=== PATIENT | female | born 1940 | race Caucasian/White ===

== ENCOUNTER → 2017-12-30 | Outpatient (CLI) | payer MEDICARE, MEDICAID ==
[~2017-12-30] MED LIST: NAPROSYN500 MG PO; NORCO 5-325 TA1 EACH PO
--- NOTE | ~2017-12-30 | PAINCON ---
[address] [address] PAIN MANAGEMENT CONSULTATION Name: ALVARO DE LEON Room: [facility] ROBERT Landers#: [id number] Admission: 12/30/17 Attend Phys: Darren Moreno MD Discharge: Date of : 42 Report #: [id number] THIS REPORT FOR: //name// CC: Jhonny Moreno This should be attached to the previous dictation, #[id number]. LABORATORY DATA: No new laboratory values are available. The patient has a history of scoliosis. PAIN CLINIC ASSESSMENT: 1. 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 2. Height 5 feet 6 inches, weight 160 pounds, BMI is 26.0. 3. Vital signs: Blood pressure 145/65, heart rate 73, respiratory rate 16, room air saturation 98%, temperature 97.5. 4. Pain intensity 10/10. 5. Fall history: The patient has not fallen in the last 3 months. 6. Blood thinner. The patient is not on a blood thinning medication. 7. Hypertension. The patient is not being treated for hypertension. 8. Opioid therapy greater than 6 weeks. The patient receives medications from 1 source for her pain, which has been hydrocodone. 9. Risk assessment tool, low for opioid use. 10. Functional assessment tool about 35/70. 11. Recreational drug use: The patient denies. 12. Tobacco: The patient denies. 13. Alcohol: The patient occasionally uses alcoholic beverages. PHYSICAL EXAMINATION: GENERAL: The patient is a well-developed, well-nourished white female. Appears her stated age. She is alert and oriented x 3. Affect is appropriate. Speech is fluent. HEENT: Normocephalic, atraumatic. Extraocular eye muscles intact. Sclerae nonicteric. Mucous membranes are moist. NECK: With reasonable range of motion. No JVD or bruits. HEART: Regular rate. S1, S2. LUNGS: Clear to auscultation. ABDOMEN: Nontender. Bowel sounds present. NEUROLOGIC: Upper extremity muscle strength is judged to be 4+/5. The patient has changes in her fingers consistent with osteoarthritis involving the joints. The patient has scoliotic changes involving her upper back with a movement toward the left. The patient complains of some pain and discomfort in lower leg area with some cramping. She is able to lean forward on her toes and her heels. The patient is without significant lumbar radicular pain. The patient noticed soreness in her ribs, particularly noted increased soreness in the ribs after lifting a 14-pound bag of cat litter. Left and right lateral bending, left and right lateral rotation cause increased back and chest pain[place] [address] PAIN MANAGEMENT CONSULTATION Name: ALVARO DE LEON Room: [facility]#: [id number] Admission: 12/30/17 Attend Phys: Darren Moreno MD Discharge: Date of : 42 Report #: [id number] to lean forward to 45 degrees before limitations of pain stop her movement. IMPRESSION: 1. Chronic pain involving the axial skeleton secondary to osteoarthritis. 2. History of chronic bladder infections. 3. History of chronic bronchitis. RECOMMENDATIONS: We discussed treatment options with the patient. At this juncture, we will continue with her use of hydrocodone. She feels that this medication has been quite helpful. She generally takes 5 mg b.i.d. Finds that her pain level can be about 5 with use of this medication at that level, taking one twice a day. At this juncture, she is not interested in having imaging of her back. She is not considering surgery. She would like to have her medications continued, so that she can have reasonable effective and comfortable life. We have had the patient sign a contract with the pain clinic that she will get her medications from one source. We discussed the problems with opioid medications, which could include addiction as well as chronic use could cause tolerance with less effectiveness of medication. We explained that 72,000 people last year as a result of opioid overdoses. There has been about 500,000 people have since 1979 and the use of opioid medications. The patient feels that these medications are helpful. She would like to proceed with their use. She will call us if she has any concerns. By: [id number]. Norberto Moreno MD /mirza
--- NOTE | 2018-01-21 16:20 | PAINCON ---
[address] [address] PAIN MANAGEMENT CONSULTATION Name: ALVARO DE LEON Room: [facility] ROBERT ArriagaJeffery#: [id number] Admission: 12/30/17 Attend Phys: Darren Moreno MD Discharge: Date of : 42 Report #: [id number] THIS REPORT FOR: //name// CC: Jhonny Moreno DATE OF SERVICE: 12/30/2017 CHIEF COMPLAINT: Feels like my back is broken. HISTORY OF PRESENT ILLNESS: The patient is a 77-year-old female who has been referred to the Pain Clinic for evaluation. The patient states she has had a long history of back problems. She has a significant problem with her back secondary to scoliosis. She notes that standing makes her back particularly more problematic. She states that she has had some fractures in her back. She is not considering surgery. States that she has been disabled since about 1998. She rates her pain as an 8 at this juncture. With her current medication regimen of [place] 5 one tablet b.i.d., her pain decreases to 5, which is much more manageable. States that she has been taking the medication for some time, has not had any problems with it. She describes her discomfort as continuous, constant, burning, cramping, aching, throbbing, pounding, sharp and stabbing. Pain goes to level of 10/10. She has a history of osteoarthritis as well. Has a significant amount of arthritic changes with numbness with swelling in her fingers with limitations of movement of her digits because of this arthritic pain. She has come to the Pain Clinic with the hope of receiving her medications. She states that her primary doctor feels that she should be seen by a pain physician in order to continue to provide her medication relief. ALLERGIES: CANNOT TAKE DOXYCYCLINE, TETRACYCLINE, AND LEVOFLOXACIN. MEDICATIONS: Naprosyn, Vicodin 5/300 q. 12 hours p.r.n., Tylenol p.r.n. PAST MEDICAL HISTORY: Pneumonia, arthritis, chronic bladder infections, spinal scoliosis, chronic bronchitis. PAST SURGICAL HISTORY: Neck surgery in 195, forearm surgery in 2011, hysterectomy in 2007 with bladder surgery. Fatty removed tumor removed and that was the one for the forearm in 2011 and for neck surgery. . REVIEW OF SYSTEMS: Generally good health, wears glasses for reading, swelling involving the ankles and hands, joint pain, joint stiffness, muscle pain, back pain. LABORATORY DATA: No new laboratory values are available. The patient [place] [address] PAIN MANAGEMENT CONSULTATION Name: ALVARO DE LEON Room: [facility]#: [id number] Admission: 12/30/17 Attend Phys: Darren Moreno MD Discharge: Date of : 42 Report #: [id number] PAIN CLINIC ASSESSMENT: 1. 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 2. Height 5 feet 6 inches, weight 160 pounds, BMI is 26.0. 3. Vital signs: Blood pressure 145/65, heart rate 73, respiratory rate 16, room air saturation 98%, temperature 97.5. 4. Pain intensity 10/10. 5. Fall history: The patient has not fallen in the last 3 months. 6. Blood thinner. The patient is not on a blood thinning medication. 7. Hypertension. The patient is not being treated for hypertension. 8. Opioid therapy greater than 6 weeks. The patient receives medications from 1 source for her pain, which has been hydrocodone. 9. Risk assessment tool, low for opioid use. 10. Functional assessment tool about 35. 11. Recreational drug use: The patient denies. 12. Tobacco: The patient denies. 13. Alcohol: The patient occasionally uses alcoholic beverages. PHYSICAL EXAMINATION: GENERAL: The patient is a well-developed, well-nourished white female. Appears her stated age. She is alert and oriented x 3. Affect is appropriate. Speech is fluent. HEENT: Normocephalic, atraumatic. Extraocular eye muscles intact. Sclerae nonicteric. Mucous membranes are moist. NECK: With reasonable range of motion. No JVD or bruits. HEART: Regular rate. S1, S2. LUNGS: Clear to auscultation. ABDOMEN: Nontender. Bowel sounds present. NEUROLOGIC: Upper extremity muscle strength is judged to be 4+/5. The patient has changes in her fingers consistent with osteoarthritis involving the joints. The patient has scoliotic changes involving her upper back with a movement toward the left. The patient complains of some pain and discomfort in lower leg area with some cramping. She is able to lean forward on her toes and her heels. The patient is without significant lumbar radicular pain. The patient noticed soreness in her ribs, particularly noted increased soreness in the ribs after lifting a 14-pound bag of cat litter. Left and right lateral bending, left and right lateral rotation cause increased back and chest pain. The patient is able to lean forward to 45 degrees before limitations of pain stop her movement. IMPRESSION: 1. Chronic pain involving the axial skeleton secondary to osteoarthritis. 2. History of chronic bladder infections. 3. History of chronic bronchitis. RECOMMENDATIONS: We discussed treatment options with the patient. At this juncture, we will continue with her use of hydrocodone. She feels that this [facility] [address] [place] [address] PAIN MANAGEMENT CONSULTATION Name: ALVARO DE LEON Room: [facility]#: [id number] Admission: 12/30/17 Attend Phys: Darren Moreno MD Discharge: Date of : 42 Report #: [id number] medication has been quite helpful. She generally takes 5 mg b.i.d. Finds that her pain level can be about 5 with use of this medication at that level, taking one twice a day. At this juncture, she is not interested in having imaging of her back. She is not considering surgery. She would like to have her medications continued, so that she can have reasonable effective and comfortable life. We have had the patient sign a contract with the pain clinic that she will get her medications from one source. We discussed the problems with opioid medications, which could include addiction as well as chronic use could cause tolerance with less effectiveness of medication. We explained that 72,000 people last year as a result of opioid overdoses. There has been about 500,000 people have since 1979 and the use of opioid medications. The patient feels that these medications are helpful. She would like to proceed with their use. She will call us if she has any concerns. <ELECTRONICALLY SIGNED> By: Darren Moreno MD 01/21/18 1620 [id number]. MD jorge a Choi
== END ==
LOC: M.PC 05:02
DX: M19.90 Unspecified osteoarthritis, unspecified site (principal); G89.29 Other chronic pain; Z87.440 Personal history of urinary (tract) infections; Z87.09 Personal history of other diseases of the respiratory system

== ENCOUNTER → 2018-02-10 | Outpatient (CLI) | payer MEDICARE, MEDICAID ==
--- NOTE | 2018-02-13 17:20 | PAINCON ---
[facility] [address] [place] [address] PAIN MANAGEMENT CONSULTATION Name: ALVARO DE LEON Room: [facility] ROBERT ArriagaJeffery#: [id number] Admission: 02/10/18 Attend Phys: Darren Moreno MD Discharge: Date of : 42 Report #: [id number] THIS REPORT FOR: //name// CC: Jhonny Fried DATE OF SERVICE: 02/10/2018 CHIEF COMPLAINT: Chronic pain. HISTORY: The patient is a 77-year-old female who has been seen in the pain clinic in the past because of chronic back pain. She has a significant problem secondary to scoliosis. Notes that pain exacerbates her discomfort. She has been disabled since 1998. Current medications are [place] b.i.d., which makes her pain more manageable. Describes her discomfort as exacerbated when she bends over to pick items up. Has been told that she has spinal stenosis. Has noticed some changes in her hand consistent with osteoarthritis, which is making certain activities work more problematic because of her fingers. Notes that the middle finger on her hand is becoming less functional because of the arthritic changes in the joint. She also has pain in her low back with pain radiating down in between her shoulders. Feels that her medication of [place] 5 mg 1 p.o. b.i.d., continue to be helpful. She has returned today for renew of her medication. ALLERGIES: DOXYCYCLINE, TETRACYCLINE, AND LEVOFLOXACIN. MEDICATIONS: Naprosyn 500 mg daily, hydrocodone 5/325 one p.o. b.i.d. PAIN CLINIC ASSESSMENT/PQRS: 1. History of osteoarthritis involving her hands with increased swelling around her knuckles and scoliosis. 2. The patient is not being treated for rheumatoid arthritis. 3. Height 5 feet 6 inches, weight 160 pounds, BMI is 26.1. 4. Vital signs: Blood pressure 137/56, heart rate 66, respiratory rate 18, room air saturation 94%, temperature 97.6. 5. Pain intensity 09/16. 6. Fall history: The patient has not fallen in the last 3 months. 7. Blood thinner. The patient is not on a blood thinning medication. 8. Hypertension. The patient is not being treated for hypertension. 9. Opioids greater than 6 weeks. The patient receives her medication from 1 source, the pain clinic. 10. Risk assessment tool, low for opioid use. 11. Functional assessment tool, 35/70. 12. Recreational drug use. The patient denies recreational drug use. 13. Tobacco: The patient denies use of tobacco. 14. Alcohol: The patient occasionally uses [place] [address] PAIN MANAGEMENT CONSULTATION Name: ALVARO DE LEON [facility] [id number] Admission: 02/10/18 Attend Phys: Darren Moreno MD Discharge: Date of : 42 Report #: [id number] beverage. PHYSICAL EXAMINATION: GENERAL: The patient is a well-developed, well-nourished white female. Appears her stated age. She is alert and oriented x 3. Her affect is appropriate. Speech is fluent. HEENT: Normocephalic, atraumatic. Extraocular, eye muscles intact. Sclerae nonicteric. Mucous membranes are moist. NECK: With reasonable range of motion. No JVD or bruits. HEART: Regular rate. S1, S2. LUNGS: Clear to auscultation. ABDOMEN: Nontender. Bowel sounds present. EXTREMITIES: The patient's upper extremity muscle strength is judged to be 4+/5. The patient has significant change noted in her fingers in conjunction with osteoarthritis involving her joints. The patient has scoliotic changes in her upper back with movement to the left. Complains of pain and discomfort in her lower leg and notes some cramping. The patient has some soreness in her ribs, particularly increased in the ribs after exacerbation of pain after lifting her cat litter. Has some decreased ability to bend greater than 45 degrees secondary to pain. IMPRESSION: 1. Chronic pain involving the axial skeleton secondary to osteoarthritis. 2. History of chronic bladder infections. 3. Involvement of the fingers because of osteoarthritic changes. 4. History of chronic bronchitis. RECOMMENDATIONS: We discussed treatment options with the patient. At this juncture, we will continue with her current medication regimen. A script for her medications of [place] 5/325 one p.o. b.i.d. have been written. The patient continues to have some pain, which is quite problematic in her hands. These are secondary to changes from the osteoarthritis that is overtaking her hands. We will continue with her current medications. She will call us if she has any concerns. We would like to thank you for letting us participate in her care. We hope she continues to improve. <ELECTRONICALLY SIGNED> By: Darren Moreno MD 02/13/18 1720 [id number]. Norberto Moreno MD /HELEN
== END ==
LOC: M.PC 05:24
DX: M19.042 Primary osteoarthritis, left hand (principal); G89.29 Other chronic pain; M54.5 Low back pain; Z79.899 Other long term (current) drug therapy; Z87.09 Personal history of other diseases of the respiratory system; Z87.440 Personal history of urinary (tract) infections

== ENCOUNTER → 2018-03-17 | Outpatient (CLI) | payer MEDICARE, MEDICAID ==
--- NOTE | ~2018-03-17 | PAINCON ---
[address] [address] PAIN MANAGEMENT CONSULTATION Name: ALVARO DE LEON Room: [facility] ROBERT GonzalezFaizan#: [id number] Admission: 03/17/18 Attend Phys: Darren Moreno MD Discharge: Date of : 42 Report #: [id number] THIS REPORT FOR: //name// CC: Jhonny Moreno DATE OF SERVICE: 03/17/2018 CHIEF COMPLAINT: "Here for medication renewal." HISTORY: The patient is a 78-year-old female who has been followed in the Pain Clinic. As you may recall, she has pain and discomfort in her shoulders as well as in her hands. She has been followed over the years for chronic back pain. She has pain secondary to scoliosis. She notes that the pain has been problematic and she has been disabled since 1998. Currently, she uses [place] 5 mg b.i.d. and feels that this makes her pain more manageable. She is able to engage in activities of daily living with less problem. She also has changes which continued to worsen consistent with osteoarthritis involving her fingers. She is having less control of her hands because of these changes. They are becoming less functional. She notes swelling and significant movement problems in her joints. Also, she has returned today for renewal of her medications. Overall, she feels that things are going reasonably well. ALLERGIES: DOXYCYCLINE, TETRACYCLINE, LEVOFLOXACIN. MEDICATIONS: Naprosyn 500 mg, hydrocodone 5/325s one p.o. b.i.d. PAIN CLINIC ASSESSMENT/PQRS: 1. History of osteoarthritis involving her hands with increased swelling around the knuckles and has problems with scoliosis. 2. The patient is not being treated for rheumatoid arthritis. 3. Height 5 feet 6 inches, weight 161 pounds, BMI is 26. 4. Vital signs: Blood pressure 136/59, heart rate 63, respiratory rate 18, room air saturation is 95%, temperature 97.5. 5. Pain intensity: 8/10. 6. Fall history: The patient has not fallen in the last 3 months. 7. Blood thinner: The patient is not on a blood thinning medication. 8. Hypertension: The patient is not being treated for hypertension. 9. Opioids greater than 6 weeks: The patient receives her medications from one source, the Pain Clinic. 10. Risk assessment tool: Low for opioid use. 11. Functional assessment tool: 35/70. 12. Recreational drug use: The patient denies use of recreational drugs. 13. Tobacco: The patient denies use of tobacco. 14. Alcohol: The patient occasionally drinks an alcoholic [place] [address] PAIN MANAGEMENT CONSULTATION Name: ALVARO DE LEON Room: [facility]#: [id number] Admission: 03/17/18 Attend Phys: Darren Moreno MD Discharge: Date of : 42 Report #: [id number] PHYSICAL EXAMINATION: GENERAL: The patient is a well-developed, well-nourished white female. She appears her stated age. She is alert and oriented x 3. Her affect is appropriate. Speech is fluent. HEENT: Normocephalic, atraumatic. Extraocular eye muscles intact. Sclerae nonicteric. Mucous membranes are moist. NECK: Without adenopathy. Good range of motion. No JVD or bruits. HEART: Regular rate, S1 and S2. LUNGS: Clear to auscultation. ABDOMEN: Nontender. Bowel sounds present. MUSCULOSKELETAL: Upper extremity muscle strength judged to be 4+/5. 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 Lower extremities: The patient complains of some cramping sensation. She notes some pain and discomfort in her back when lifting, particularly when she lifts cat litter or heavier objects. The patient has inability to bend greater than 45 degrees secondary to worsening of pain and discomfort. IMPRESSION: 1. Chronic pain involved with axio-skeletal problems secondary osteoarthritis. 2. History of chronic bladder infection. 3. Involvement of the fingers, cause being problems with osteoarthritic changes. 4. History of chronic bronchitis. RECOMMENDATIONS: We discussed treatment options with the patient. At this juncture, she feels her medications are working reasonably well. She would like to continue with medications, is not having any problem. She is aware that opioid medications can be problematic. They can become less effective over time as well because of the tolerance. A script for her medication, [place] 5/325s one p.o. b.i.d. has been written. The patient will call us if she has any concerns. We would like to thank you for letting us participate in her care. We hope she continues to improve. By: [id number]. Norberto Moreno MD /nt
== END ==
LOC: M.PC 09:50
DX: M19.042 Primary osteoarthritis, left hand (principal); M19.041 Primary osteoarthritis, right hand; G89.29 Other chronic pain; Z79.899 Other long term (current) drug therapy; Z87.440 Personal history of urinary (tract) infections; Z87.09 Personal history of other diseases of the respiratory system

== ENCOUNTER → 2018-04-14 | Outpatient (CLI) | payer MEDICARE, MEDICAID ==
--- NOTE | ~2018-04-14 | PAINCON ---
[address] [address] PAIN MANAGEMENT CONSULTATION Name: ALVARO DE LEON Room: [facility] ROBERT GonzalezFaizan#: [id number] Admission: 04/14/18 Attend Phys: Darren Moreno MD Discharge: Date of : 42 Report #: [id number] THIS REPORT FOR: //name// CC: Dr. Jhonny Moreno DATE OF SERVICE: 04/14/2018 CHIEF COMPLAINT: Here for medication renewal. HISTORY OF PRESENT ILLNESS: The patient is a 78-year-old female who has been followed in the pain clinic. As you recall, she has pain and discomfort in her shoulders as well as in her hands. Her hands are beginning to show signs of osteoarthritic changes. They have become less flexible. She is noticing swelling at the joints. She has been disabled since 1998. She finds that use of hydrocodone can be helpful. She continues to engage in activities of daily living. Feels that she is having less control over her hands because of the osteoarthritic changes which are ongoing. Her fingers are becoming less functional. She has returned today for renewal of her medications. Feels that her fingers are swollen. Notes that the change in the weather pattern has exacerbated the pain and discomfort. Also, has some pain between her shoulders. Notes that standing and walking exacerbates pain and discomfort. ALLERGIES: DOXYCYCLINE, TETRACYCLINE, LEVOFLOXACIN. CURRENT MEDICATIONS: Naprosyn 500 mg, hydrocodone 5/325 one p.o. b.i.d. PAIN CLINIC ASSESSMENT/PQRS: 1. Osteoarthritis. The patient has osteoarthritis involving her hands with increased swelling around the knuckles. Has some problems with scoliosis. 2. The patient is not being treated for rheumatoid arthritis. 3. Height 5 feet 6 inches, weight 165 pounds, BMI 26.6. 4. Vital Signs: Blood pressure 128/71, heart rate 63, respiratory rate 18, room air saturation 96%, temperature 97.5. 5. Pain score 7/10. 6. Fall history: The patient has not fallen in the last 3 months. 7. Blood thinner. The patient is not on a blood thinning medication. 8. Hypertension. The patient is not being treated for hypertension. 9. Opioids greater than 6 weeks. The patient receives her medication from [facility], the pain clinic. 10. Risk assessment tool. 11. Functional assessment tool. 12. Recreational drug use. The patient denies use of recreational drugs. 13. Tobacco: The patient denies use of tobacco. 14. Alcohol: The patient denies [place] [address] PAIN MANAGEMENT CONSULTATION Name: ALVARO DE LEON Room: [facility]#: [id number] Admission: 04/14/18 Attend Phys: Darren Moreno MD Discharge: Date of : 42 Report #: [id number] PHYSICAL EXAMINATION: GENERAL: The patient is a well-developed, well-nourished white female. Appears her stated age. She is alert and oriented x 3. Her affect is appropriate. Speech is fluent. HEENT: Normocephalic, atraumatic. Extraocular eye muscles intact. Sclerae nonicteric. NECK: Without adenopathy. Good range of motion. HEART: Regular rate. S1, S2. LUNGS: Clear to auscultation. ABDOMEN: Nontender. Bowel sounds present. MUSCULOSKELETAL: Upper extremity muscle strength is judged to be 4+/5 for the upper extremity muscle strength. 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 4/5 with significant swelling in her knuckles. Lower extremity, the patient complains of some cramping sensation. She has pain and discomfort in her lower back when lifting particularly when changing her current cat litter and heavier objects. The patient is unable to bend greater than 45 degrees. IMPRESSION: 1. Chronic pain involving axial skeletal problems secondary to osteoarthritis. 2. History of chronic bladder infection. 3. Involvement of the fingers because of osteoarthritic changes. 4. History of chronic bronchitis. RECOMMENDATIONS: We discussed treatment options with the patient. At this juncture, we will continue with her current medical regimen. A script for her medications have been rewritten. 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 They can become less effective as well as one can develop dependence on these medications. Overall, she feels that use of [place] has been beneficial. She is able to accomplish more. Has less pain and discomfort. She is aware that opioid medications can be problematic. She will continue to use them as prescribed. By: [id number]. Norberto Moreno MD /nt
== END ==
LOC: M.PC 11:00
DX: M19.90 Unspecified osteoarthritis, unspecified site (principal); G89.29 Other chronic pain; Z79.899 Other long term (current) drug therapy; Z87.440 Personal history of urinary (tract) infections; Z87.09 Personal history of other diseases of the respiratory system

== ENCOUNTER → 2018-05-12 | Outpatient (CLI) | payer MEDICARE, MEDICAID ==
--- NOTE | ~2018-05-12 | PAINCON ---
[address] [address] PAIN MANAGEMENT CONSULTATION Name: ALVARO DE LEON Room: [facility] ROBERT Anshul#: [id number] Admission: 05/12/18 Attend Phys: Darren Moreno MD Discharge: Date of : 42 Report #: [id number] THIS REPORT FOR: //name// CC: Jhonny Moreno DATE OF SERVICE: 05/12/2018 CHIEF COMPLAINT: Increased back pain, "I have moved a heater from one room to the next." HISTORY OF PRESENT ILLNESS: The patient is a 78-year-old female who has been followed in the Pain Clinic. She has pain and discomfort involving her shoulders as well as her hands. She has osteoarthritic changes involving her fingers. She is noting increased pain and discomfort in her back. Last week, she lifted a heater. It has been cold outside. She moved it from one room to the next. She has noticed that she has had increased pain between her shoulders and mid back area. She states that she has some arthritic changes in her chest, which have been problematic for years. She rates her pain as a 7/10 at this juncture. She would like to have her medications of [place] renewed. She feels that this medication is helpful. She feels she is about 60% improved with its use. ALLERGIES: DOXYCYCLINE, TETRACYCLINE, LEVOFLOXACIN. CURRENT MEDICATIONS: Naprosyn 500 mg, hydrocodone 5/325 one p.o. b.i.d. PAIN CLINIC ASSESSMENT/PQRS: 1. Osteoarthritis. The patient has osteoarthritic changes involving her hands as well as around the knuckles. The patient has some scoliosis history. 2. The patient is not being treated for rheumatoid arthritis. 3. Height 5 feet 6 inches, weight 165 pounds, BMI is 26.7. 4. Vital Signs: Blood pressure 132/65, heart rate 75, respiratory rate 16, room air saturation 96%, temperature 97.5. 5. Pain intensity 09/16. 6. Fall history: The patient has not fallen in the last 3 months. 7. Blood thinner. The patient is not on blood thinning medication. 8. Hypertension. The patient is not being treated for hypertension. 9. Opioids greater than 6 weeks. The patient receives her medications through the Pain Clinic[facility]. 10. Risk assessment tool, low for opioid use. 11. Functional assessment tool. 12. Recreational drug use. The patient denies use of recreational drugs. 13. Tobacco: The patient denies use of tobacco. 14. Alcohol: The patient [place] [address] PAIN MANAGEMENT CONSULTATION Name: ALVARO DE LEON Room: [facility]#: [id number] Admission: 05/12/18 Attend Phys: Darren Moreno MD Discharge: Date of : 42 Report #: [id number] PHYSICAL EXAMINATION: GENERAL: The patient is a well-developed, well-nourished white female, appears her stated age. She is alert and oriented x 3. Her affect is appropriate. Speech is fluent. HEENT: Normocephalic, atraumatic. Extraocular eye muscles are intact. Sclerae nonicteric. Mucous membranes are moist. The patient is wearing glasses. NECK: Without adenopathy or JVD. Good range of motion. HEART: Regular rate. S1, S2. LUNGS: Clear to auscultation without rhonchi. ABDOMEN: Nontender. Bowel sounds are present. MUSCULOSKELETAL: The patient has pain and discomfort which is judged to be increased in the mid back area and between her shoulders and mid back after lifting the heater. The patient has significant changes and swelling in her knuckles. She has had problems lifting with her back cat litter. The patient is unable to bend greater than 45 degrees. IMPRESSION: 1. Chronic pain involving the skeletal area secondary to osteoarthritis. 2. History of chronic bladder infection. 3. Involvement of fingers caused by osteoarthritic change. 4. History of chronic bronchitis. RECOMMENDATIONS: We discussed treatment options with the patient. At this juncture, we will continue with her current medications of [place] 5 mg 1 p.o. b.i.d. The patient is aware that these medications can be problematic prison secondary to development of dependence as well as development of less effectiveness because of tolerance. Overall, she feels her medications are helpful. Would like to have them renewed. Keeps her medication in a guarded area. We would like to thank you for letting us participate in her care. We hope she continues to improve. By: [id number]. Norberto Moreno MD /mirza
== END ==
LOC: M.PC 04:26
DX: M19.90 Unspecified osteoarthritis, unspecified site (principal); I10 Essential (primary) hypertension; G89.29 Other chronic pain; Z87.09 Personal history of other diseases of the respiratory system; Z87.440 Personal history of urinary (tract) infections

== ENCOUNTER → 2018-06-09 | Outpatient (CLI) | payer MEDICARE, MEDICAID ==
--- NOTE | ~2018-06-09 | PAINCON ---
[address] [address] PAIN MANAGEMENT CONSULTATION Name: ALVARO DE LEON Room: [facility] ROBERT ArriagaJeffery#: [id number] Admission: 06/09/18 Attend Phys: Darren Moreno MD Discharge: Date of : 42 Report #: [id number] THIS REPORT FOR: //name// CC: Jhonny Fried DATE OF SERVICE: 06/09/2018 CHIEF COMPLAINT: Here for medication renewal and I have got a little lump on my thyroid and a lump on my shoulder. It was a fatty tumor. HISTORY: The patient is a very pleasant 78-year-old female, who has been followed in the pain clinic. She has pain and discomfort involving her shoulders. Notes that the pain is in her neck. She rates it as a 5/10. Notes that the pain in the mid back area near the area of the fractures is better. She has not picked up any heavy objects. She has a nodule/bump on the anterior portion of her thyroid. She has noticed this and has become more concerned. She will contact her doctor, Dr. Jhonny De Oliveira in regards to possibility of biopsy or evaluation of the nodule. She has a lump on her left shoulder. She did have a lipoma on the left forearm, which has been removed. She feels that she has grown another lipoma. She has an area in the posterior portion of her neck. She states that she was told that it was a cyst that has been in place for a number of years without change. It is sore to touch. ALLERGIES: DOXYCYCLINE, TETRACYCLINE, LEVOFLOXACIN. CURRENT MEDICATIONS: Naprosyn 500 mg, hydrocodone 5/325 one p.o. b.i.d. PAIN CLINIC/PQRS: 1. Osteoarthritis. The patient has some osteoarthritic change involving her hands as well as in her knuckles. She has a history of scoliosis. 2. Rheumatoid. The patient is not being treated for rheumatoid arthritis. 3. Height 5 feet 6 inches, weight 166 pounds, BMI is 27.0. 4. Vital signs: Blood pressure 130/59, heart rate 69, respiratory rate 16, room air saturation 94%, and temperature 97.7. 5. Pain intensity 10. 6. Fall history: The patient has not fallen in the last 3 months. 7. Blood thinner. The patient is not on a blood thinning medication. 8. Hypertension. The patient is not being treated for hypertension. 9. Opioids greater than 6 weeks. The patient [facility] her [facility]. 10. Risk assessment tool, low for opioid use. 11. Functional assessment tool. 12. Recreational drug use. The patient denies use of recreational drugs. 13. Tobacco: The [place] [address] PAIN MANAGEMENT CONSULTATION Name: ALVARO DE LEON Room: [facility]#: [id number] Admission: 06/09/18 Attend Phys: Darren Moreno MD Discharge: Date of : 42 Report #: [id number] 14. Alcohol: The patient occasionally drinks an alcoholic beverage. PHYSICAL EXAMINATION: GENERAL: The patient is a well-developed, well-nourished white female. Appears her stated age. She is alert and oriented x 3. VITAL SIGNS: Her affect is appropriate. Speech is fluent. HEENT: Normocephalic, atraumatic. Extraocular eye muscles intact. Sclerae nonicteric. Mucous membranes are moist. The patient does have a nodule of approximately the size of a cast shoe in the midline portion of her neck. She is easily movable. HEART: Regular rate. S1, S2. LUNGS: Clear to auscultation without rhonchi or rales. ABDOMEN: Nontender. Bowel sounds present. MUSCULOSKELETAL: The patient has less pain in the right low back area, has some pain in the mid shoulder area behind her neck. Palpation in this area causes some discomfort. The patient states she has had a cyst in this area that has been there for a number of years. The patient also has pain and discomfort in the left shoulder area. She has an easily movable mass, which is consistent with a lipoma. IMPRESSION: 1. Chronic pain involving the skeletal area secondary to osteoarthritis. 2. A nodule approximately the size of a cashew in anterior portion of her thyroid. The patient will be evaluated for this by her primary. 3. Involvement of the fingers with onset of osteoarthritic changes. 4. History of chronic bronchitis. RECOMMENDATIONS: We discussed treatment options with the patient. At this juncture, we will continue with her medications. A script for hydrocodone has been written. The patient will follow up with her primary physician in regards to the nodule on her thyroid. She will also follow up with her surgeon with the possibility of removing the lipoma-like growth on her left shoulder. She will call us if she has any concerns. We would like to thank you for letting us participate in her care. We hope she continues to improve. By: 1206 MartinezN. Norberto Moreno MD /mirza
== END ==
LOC: M.PC 05:29
DX: G89.29 Other chronic pain (principal); E04.1 Nontoxic single thyroid nodule; M19.90 Unspecified osteoarthritis, unspecified site; Z79.891 Long term (current) use of opiate analgesic; Z79.899 Other long term (current) drug therapy; Z88.1 Allergy status to other antibiotic agents

== ENCOUNTER → 2018-07-07 | Outpatient (CLI) | payer MEDICARE, MEDICAID ==
--- NOTE | ~2018-07-07 | PAINCON ---
[address] [address] PAIN MANAGEMENT CONSULTATION Name: ALVARO DE LEON Room: [facility] ROBERT ArriagaJeffery#: [id number] Admission: 07/07/18 Attend Phys: Darren Moreno MD Discharge: Date of : 42 Report #: [id number] THIS REPORT FOR: //name// CC: Jhonny Moreno DATE OF SERVICE: 07/07/2018 CHIEF COMPLAINT: Here for medications. Things are going pretty well. HISTORY: The patient is a 78-year-old female who has been followed in the pain clinic. As you may recall, she has pain and discomfort, which is problematic in her back and shoulder. She states that she is finding her medications of hydrocodone helpful. Did note some increased pain with significant amount of walking at [facility]. She has pain in her right hip. Has some pain in her groin. Notes that sitting, generally makes the pain worse. Rates her pain as a 6-7/10. She denies any new trauma. Notes that certain movements cause increased pain in her upper back. This is an ____ where she has had a compression fracture in the past. This is old. She has returned today with a hope of renewing her medications. Feels that the night of the hydrocodone and the Naprosyn are helpful. Notes the pain is worse when she is walking as well as with prolonged standing. ALLERGIES: No known drug allergies. ALLERGIES: DOXYCYCLINE, TETRACYCLINE, LEVOFLOXACIN. CURRENT MEDICATIONS: Naprosyn 500 mg, hydrocodone 5/325 one p.o. b.i.d. PAIN CLINIC ASSESSMENT/PQRS: 1. The patient has some osteoarthritic changes involving her hands, which is evident in her knuckles. She has a history of scoliosis. The patient is not being treated for rheumatoid arthritis. 2. Height 5 feet 6 inches, weight 166 pounds, BMI is 26.9. 3. VITAL SIGNS: Blood pressure 127/68, heart rate 69, respiratory rate 16, room air saturation 94%, and temperature 97.7. 4. ____ the patient rates her pain as a 7/10. 5. Fall history: The patient has not fallen in the last 3 months. 6. Blood thinner. The patient is not on a blood thinning medication. 7. Hypertension. The patient is not being treated for hypertension. 8. Opioids greater than 6 weeks. The patient received medication from [facility], the pain clinic. 9. Risk assessment tool, low for opioid use. 10. Functional assessment tool. 11. Recreational drug use. The patient denies. 12. Tobacco: The patient [place] [address] PAIN MANAGEMENT CONSULTATION Name: ALVARO DE LEON Room: [facility] RADHA Anshul#: [id number] Admission: 07/07/18 Attend Phys: Darren Moreno MD Discharge: Date of : 42 Report #: [id number] 13. Alcohol: The patient will rarely drinks alcoholic beverages. PHYSICAL EXAMINATION: GENERAL: The patient is a well-developed, well-nourished white female. Appears her stated age. She is alert and oriented x 3. Her affect is appropriate. Speech is fluent. HEENT: Normocephalic, atraumatic. Extraocular eye muscles intact. Sclerae nonicteric. Mucous membranes are moist. The patient has a glasses in place. HEART: Regular rate. S1, S2. LUNGS: Clear to auscultation without rhonchi or rales. ABDOMEN: Nontender. Bowel sounds present. MUSCULOSKELETAL: Without significant kyphosis. The patient has some pain and discomfort in the mid portion of her back. Has an old cyst in the posterior portion of her neck and the left shoulder, which has been there for a while. Easily movable, consistent with a lipoma. IMPRESSION: 1. Chronic pain involving the skeletal area secondary to osteoarthritis and history of old compression fracture. 2. Nodule approximately size of a cashew in the anterior portion of her thyroid. The patient is to be evaluated by her primary physician. 3. Involvement of her fingers with involvement of changes consistent with osteoarthritis. 4. History of chronic bronchitis. RECOMMENDATIONS: We discussed treatment options with the patient. At this juncture, we will continue with her medications. A script for her medications have been released. She will continue with the hydrocodone and take 1 tablet p.o. b.i.d. She will call us if she has any concerns. We would like to thank you for letting us participate in her care. We hope she continues to improve. By: [id number]. Norberto Moreno MD /mirza
== END ==
LOC: M.PC 04:51
DX: G89.29 Other chronic pain (principal); M47.816 Spondylosis without myelopathy or radiculopathy, lumbar region; E04.1 Nontoxic single thyroid nodule; Z88.8 Allergy status to other drugs, medicaments and biological substances; Z88.1 Allergy status to other antibiotic agents; Z79.899 Other long term (current) drug therapy; Z79.891 Long term (current) use of opiate analgesic

== ENCOUNTER → 2018-08-04 | Outpatient (CLI) | payer MEDICARE, MEDICAID ==
[~2018-08-04] MED LIST changes: +TYLENOL PM EX-1 EACH PO
--- NOTE | 2018-08-06 01:32 | PAINCON ---
[address] [address] PAIN MANAGEMENT CONSULTATION Name: ALVARO DE LEON Room: [facility] ROBERT Arriaga.#: [id number] Admission: 08/04/18 Attend Phys: Darren Moreno MD Discharge: Date of : 42 Report #: [id number] THIS REPORT FOR: //name// CC: Jhonny Moreno DATE OF SERVICE: 08/04/2018 PRIMARY CARE PHYSICIAN: Dr. Jhonny De Oliveira. CHIEF COMPLAINT: Here for medication. HISTORY: The patient is a 78-year-old female who has been seen in the pain clinic. She continues to have pain involving her back. She also has pain in her shoulder. She has pain in her right hip. She also has been experiencing some pain in the groin area. Notes that pain increases with walking and standing. Rates it as a 5/10. 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 She is noticing worsening of pain and discomfort in her hands. Does have some osteoarthritic changes involving her hands. 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 She has noted some problems with her thyroid. She is having a little bit of trouble swallowing. She has seen a surgeon. She is scheduled to undergo surgery in the next few days. She had an ultrasound of her neck, which did show some lobulation. ALLERGIES: DOXYCYCLINE, TETRACYCLINE, AND LEVOFLOXACIN. CURRENT MEDICATIONS: Naprosyn 500 mg, hydrocodone 5/325 one p.o. b.i.d. PAIN CLINIC ASSESSMENT/PQRS: 1. The patient has some osteoarthritic changes involving her hands. There is evidence in her knuckles. She has a history of scoliosis. She is not being treated for rheumatoid arthritis. 2. Height 5 feet 6 inches, weight 165 pounds, BMI is 26.7. 3. VITAL SIGNS: Blood pressure 129/66, heart rate 66, respiratory rate 16, room air saturation 93%, temperature 97.6. 4. Pain intensity 5/10. 5. Fall history: The patient has not fallen in the last 3 months. 6. Blood thinner. The patient is not on a blood thinning medication. 7. Hypertension. The patient is not being treated for hypertension. 8. Opioid greater than 6 weeks. The patient received medication from [facility], pain clinic. 9. Risk assessment tool, low for opioid use. 10. Functional assessment tool. 11. Recreational drug use. The patient denies use of recreational drugs. 12. Tobacco: The [place] [address] PAIN MANAGEMENT CONSULTATION Name: ALVARO DE LEON Room: [facility]#: [id number] Admission: 08/04/18 Attend Phys: Darren Moreno MD Discharge: Date of : 42 Report #: [id number] 13. Alcohol. The patient rarely drinks alcoholic beverages. PHYSICAL EXAMINATION: GENERAL: The patient is a well-developed, well-nourished white female. Appears her stated age. She is alert and oriented x 3. Her affect is appropriate. Speech is fluent. HEENT: Normocephalic, atraumatic. Extraocular eye muscles intact. Sclerae nonicteric. Mucous membranes are moist. The patient is wearing the glasses. HEART: Regular rate. LUNGS: Clear to auscultation without rhonchi or rales. MUSCULOSKELETAL: Without significant kyphosis. The patient has pain and discomfort in her lower back. Has a lump in the posterior portion of her left shoulder. Has had a nodule , which was freely. It seems to be consistent with a lipoma. IMPRESSION: 1. Chronic pain involving the skeletal area secondary to osteoarthritis and history of old compression fracture. 2. Nodule approximately the size of a cashew in the anterior portion of her thyroid. The patient has been seen by her surgeon and is scheduled to undergo biopsy in the near future. 3. Involvement of changes consistent with osteoarthritis of her knuckles. 4. History of chronic bronchitis. RECOMMENDATIONS: We discussed treatment options with the patient. At this juncture, we will continue with her medications of [place] 5 mg 1 p.o. b.i.d. to help with her pain control. The patient states that she was seen by her surgeon. She has been noted to have some nodules in her thyroid. She is scheduled to undergo biopsy in the near future. We spoke with the patient regarding the procedure. I encouraged her to undergo it. She would like to get this situation behind her. She feels that if this is not one thing it is another. Overall, she feels she is about 60% improved with use of her OxyContin. She is not taking Naprosyn on a daily basis at this juncture. She is scheduled to undergo the biopsy. She will call us if she has any concerns. We have encouraged the patient to follow up with this procedure. We explained that thyroid cancer can be quite problematic in later stages. To catch it earlier is a reasonable thing. Should she have cancer and that thyroid is removed. We explained that thyroid supplementation can help her live a normal productive life. We would like to thank you for letting us participate in her care. We hope she continues to improve. <ELECTRONICALLY SIGNED> By: Darren Moreno MD 08/06/18 0132 [id number]. Norberto Moreno MD /HELEN
== END ==
LOC: M.PC 04:53
DX: G89.29 Other chronic pain (principal); M54.5 Low back pain; Z79.899 Other long term (current) drug therapy; Z87.09 Personal history of other diseases of the respiratory system

== ENCOUNTER → 2018-09-01 | Outpatient (CLI) | payer MEDICARE, MEDICAID ==
[~2018-09-01] MED LIST changes: +NORCO 5-325 TA1 EAC1 PO
--- NOTE | ~2018-09-01 | PAINCON ---
[address] [address] PAIN MANAGEMENT CONSULTATION Name: ALVARO DE LEON Room: [facility] ROBERT GonzalezFaizan#: [id number] Admission: 09/01/18 Attend Phys: Darren Moreno MD Discharge: Date of : 42 Report #: [id number] THIS REPORT FOR: //name// CC: Jhonny Moreno DATE OF SERVICE: 09/01/2018 CHIEF COMPLAINT: Here for medication renewal. HISTORY: The patient is a 78-year-old female, who has been followed in the pain clinic. As you recall, she has pain involving her back. She also has shoulder pain. She is experiencing some pain that is radiating down into her right buttocks. She notes that with prolonged walking such as she did in [facility] a few days ago pain has become more problematic. She had a nodule removed from her left shoulder. She is scheduled to follow up with her surgeon in the very near future. She has had some problem with transportation. She does not have a car. This does make it somewhat problematic for her to get to and from her medical appointments. She is scheduled in the future to undergo evaluation regarding her thyroid. She has first had the shoulder lump removed and we will pursue surgery regarding the thyroid area. She returned today and would like to have her medications of hydrocodone renewed. She finds this medication is helpful, enabling her to do activities that will be more problematic. She has some osteoarthritic changes involving her hands. CURRENT MEDICATIONS: Naprosyn 500 mg and hydrocodone 5/325 one p.o. b.i.d. ALLERGIES: DOXYCYCLINE, TETRACYCLINE, AND LEVOFLOXACIN. PAIN CLINIC ASSESSMENT: 1. The patient has some osteoarthritic changes involving her hands. Evidence is in her knuckles. She has a history of scoliosis. The patient is not being treated for rheumatoid arthritis. 2. Pain intensity. The patient rates her pain as a 1 at this juncture. 3. Fall history: The patient has not fallen in the last 3 months. 4. Blood thinner. The patient is not on a blood thinning medication. 5. Hypertension. The patient is not being treated for hypertension. 6. Opioids greater than 6 weeks. The patient receives her medication from [facility], pain clinic. 7. Risk assessment tool. 8. Functional assessment tool. 9. Recreational drug use. The patient denies. 10. Tobacco: The patient denies. 11. Alcohol. The patient rarely drinks alcoholic beverages. PHYSICAL EXAMINATION: [address] [place] [address] PAIN MANAGEMENT CONSULTATION Name: ALVARO DE LEON Room: [facility]#: [id number] Admission: 09/01/18 Attend Phys: Darren Moreno MD Discharge: Date of : 42 Report #: [id number] GENERAL: The patient is a well-developed, well-nourished white female. She appears her stated age. She is alert and oriented x 3. Her affect is appropriate. Speech is fluent. Height is 5 feet 6 inches, weight is 166 pounds, and BMI is 26.9. VITAL SIGNS: Blood pressure is 148/52, heart rate is 76, respiratory rate is 16, room air saturation is 95%, and temperature is 97.4. HEENT: Normocephalic, atraumatic. Extraocular eye muscles intact. Sclerae nonicteric. Mucous membranes are moist. NECK: Without adenopathy. The patient does have a small nodule or a small lump in the anterior portion of her neck near the thyroid. HEART: Regular rate. LUNGS: Clear to auscultation. MUSCULOSKELETAL: Without significant kyphosis or lordosis. The patient does have some scoliosis. She has a well healing area from an incision and removal of a lump on her left shoulder. A Steri-Strip is in place. IMPRESSION: 1. Chronic pain with hands and other skeletal area secondary to osteoarthritis with history of old compression fracture. 2. Nodule approximately the size of a cashew in the anterior portion of her thyroid. She is scheduled to undergo biopsy in the future. 3. Involvement of osteoarthritis in her knuckles. 4. History of chronic bronchitis. 5. History of scoliosis. RECOMMENDATIONS: We have discussed treatment options with the patient. At this juncture, we will continue with her medication of [place] 5 mg 1 p.o. b.i.d. to help control the pain. She finds that this medication is helpful. She recently had surgery with removal of a lump on her left deltoid area. She has a Steri-Strip in place. There is no evidence of infection or swelling. It appears to be healing well. The patient feels that her medications are helpful. Overall, she feels about 60% improvement with use of her current medical regimen. She is scheduling workup of her thyroid in the near future. A script for her medications of hydrocodone 5/325 one p.o. b.i.d. have been rewritten. We would like to thank you for letting us to participate in her care. We hope she continues to improve. By: [id number]. Norberto Moreno MD /PMT
== END ==
LOC: M.PC 05:42
DX: M19.042 Primary osteoarthritis, left hand (principal); M19.041 Primary osteoarthritis, right hand; G89.29 Other chronic pain; M54.5 Low back pain; M17.0 Bilateral primary osteoarthritis of knee; E04.1 Nontoxic single thyroid nodule; Z87.39 Personal history of other diseases of the musculoskeletal system and connective tissue; Z79.899 Other long term (current) drug therapy; Z87.09 Personal history of other diseases of the respiratory system

== ENCOUNTER → 2018-09-29 | Outpatient (CLI) | payer MEDICARE, MEDICAID ==
--- NOTE | ~2018-09-29 | PAINCON ---
[address] [address] PAIN MANAGEMENT CONSULTATION Name: ALVARO DE LEON Room: [facility] ROBERT GonzalezFaizan#: [id number] Admission: 09/29/18 Attend Phys: Darren Moreno MD Discharge: Date of : 42 Report #: [id number] THIS REPORT FOR: //name// CC: Jhonny Moreno DATE OF SERVICE: 09/29/2018 CHIEF COMPLAINT: "Here for medication management." HISTORY: The patient is a 78-year-old female who has been followed in the pain clinic. As you recall, she has chronic pain involving her mid back. Has some pain involving her shoulder. Notes that the pain is in the mid back area with some radiates down into her buttocks. She has pain, which she rates as a 5/10. She really feels that it is about 60% improved with her current medication. Her transportation has improved. Last time, it took about 2 hours to get here in about 20 minutes to get home. Her friend now has a new car and she was able to travel easier. She is still undergoing evaluation regarding her thyroid. She states that it will be easier when the weather gets a little cooler. She is contemplating having evaluations in November be December. Feels that her medications are helpful. As you may recall, she did have a lump removed from her shoulder that continues to improve. Feels that her medication is helpful. Rates the pain more problematic with walking, standing and certain activities of daily living. She does continue to show some signs of osteoarthritic changes involving her hands. MEDICATIONS: Naprosyn 500 mg, hydrocodone 5/325 one p.o. b.i.d. ALLERGIES: DOXYCYCLINE, TETRACYCLINE, AND LEVOFLOXACIN. PAIN CLINIC ASSESSMENT/PQRS: 1. The patient has osteoarthritic changes involving her hands. Her significant changes in her knuckles. The patient has a history of scoliosis. She is not being treated for rheumatoid arthritis. 2. Pain intensity 5/10. 3. Fall history: The patient has not fallen in the last 3 months. 4. Blood thinner. The patient is not on a blood thinning medication. 5. Hypertension. The patient is not being treated for hypertension. 6. Opioids greater than 6 weeks. The patient receives her medication from one [facility], the pain clinic. 7. Risk assessment tool. 8. Functional assessment tool. 9. Recreational drug use. The patient denies use of recreational drugs. 10. Tobacco: The patient denies use of tobacco. 11. Alcohol: The [place] [address] PAIN MANAGEMENT CONSULTATION Name: ALVARO DE LEON Room: [facility]#: [id number] Admission: 09/29/18 Attend Phys: Darren Moreno MD Discharge: Date of : 42 Report #: [id number] PHYSICAL EXAMINATION: GENERAL: The patient is a well-developed, well-nourished white female. Appears her stated age. She is alert and oriented x 3. Her affect is appropriate. Speech is fluent. HEENT: Normocephalic, atraumatic. Extraocular eye muscles intact. Sclerae nonicteric. Mucous membranes are moist. The patient is wearing glasses. NECK: Without adenopathy. The patient has a small nodule or a lump in the anterior portion of her neck near the thyroid. HEART: Regular rate. LUNGS: Clear to auscultation. MUSCULOSKELETAL: Without significant kyphosis or lordosis. The patient does have some scoliosis. She has a well healing area over the incision of the lump that was removed from her left arm. IMPRESSION: 1. Chronic pain involving her hands and other skeletal area secondary to osteoarthritis with history of old compression fracture. 2. Nodular finding approximately the size of a cashew in the anterior portion of her thyroid. She is scheduled to undergo biopsy and surgery in the future. 3. 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 4. History of chronic bronchitis. 5. History of scoliosis. RECOMMENDATIONS: We discussed treatment options with the patient. At this juncture, we will continue with her medications. She is aware that opioid medications can be helpful. She is aware that opioid medications can become less effective over time. We discussed the problems with opioids, which has been front and center in the media. A 70,000 people as a result of overdose from a medications last year. We would recommend that she continue with her medications as prescribed. She will call us if she has any concerns. She feels that this medication is beneficial. Feels that her pain is about 60% improved. She has taken the medication as prescribed. Keeps it in a guarded area. She has returned today with a hope of renewing her medication. A script for her medications of hydrocodone 5/325 mg one p.o. b.i.d. have been written. We would like to thank you for letting us participate in her care. We hope continue to help with her pain control using complex medication regimen with opioids. By: [id number]. Norberto Moreno MD /mirza
== END ==
LOC: M.PC 05:16
DX: Z76.0 Encounter for issue of repeat prescription (principal); G89.29 Other chronic pain; M19.042 Primary osteoarthritis, left hand; M19.041 Primary osteoarthritis, right hand; Z88.8 Allergy status to other drugs, medicaments and biological substances; Z79.891 Long term (current) use of opiate analgesic; Z79.899 Other long term (current) drug therapy

== ENCOUNTER → 2018-10-27 | Outpatient (CLI) | payer MEDICARE, MEDICAID ==
--- NOTE | ~2018-10-27 | PAINCON ---
[address] [address] PAIN MANAGEMENT CONSULTATION Name: ALVARO DE LEON Room: [facility] CarlosFaizan#: [id number] Admission: 10/27/18 Attend Phys: Darren Moreno MD Discharge: Date of : 42 Report #: [id number] THIS REPORT FOR: //name// CC: Jhonny Moreno DATE OF SERVICE: 10/27/2018 CHIEF COMPLAINT AND HISTORY OF PRESENT ILLNESS: Chronic pain in the left wrist as well as in the mid and low back area. The patient has pain in her shoulders. She has noted a new discomfort in her left arm. In the area of the ulnar, near the wrist she has noticed swelling. This area is sore. It recently started a few days ago. This is the same side where she had the lipomas. She is not sure, but wonders whether or not the lipoma has something to do with the swelling in her arm. This lipoma had been removed quite some time ago. She has returned today with a desire for her medications. She feels that the hydrocodone 5 mg 1 p.o. b.i.d. is not as helpful. She would like to have one more additional tablet. Feels that would enable her to get more rest in the evening. Rates her pain about 60% improved with use of her medications. States she has taken the medication as prescribed and having no problems with them. CURRENT MEDICATIONS: Naprosyn 500 mg, hydrocodone 5/325 one p.o. b.i.d. ALLERGIES: DOXYCYCLINE, TETRACYCLINE, AND LEVOFLOXACIN. PAIN CLINIC ASSESSMENT AND PQRS: 1. The patient has some osteoarthritic changes involving her hands. Has significant changes in her knuckles. The patient has a history of scoliosis. She is not being treated for rheumatoid arthritis. 2. Height 5 feet 6 inches, weight 165 pounds, BMI is 26.8. 3. Vital signs: Blood pressure 126/63, heart rate 82, respiratory rate 16, room air saturation 93%, temperature is 97.7. 4. Pain intensity is 5/10. 5. Fall history: The patient has not fallen in the last 3 months. 6. Blood thinner. The patient is not on a blood thinning medication. 7. Hypertension. The patient is not being treated for hypertension. 8. Opioids greater than 6 weeks. The patient receives her medication from [facility] the pain clinic. 9. Risk assessment tool, low for opioid use. 10. Functional assessment tool. 11. Recreational drug use. The patient denies use of recreational drugs. 12. Tobacco: The patient denies use of tobacco. 13. Alcohol: The patient rarely uses alcoholic beverages. PHYSICAL EXAMINATION: GENERAL: The patient is a well-developed, well-nour[place] [address] PAIN MANAGEMENT CONSULTATION Name: ALVARO DE LEON Room: [facility]#: [id number] Admission: 10/27/18 Attend Phys: Darren Moreno MD Discharge: Date of : 42 Report #: [id number] her stated age. She is alert and oriented x 3. Her affect is appropriate. Speech is fluent. HEENT: Normocephalic, atraumatic. Extraocular eye muscles intact. Sclerae nonicteric. Mucous membranes are moist. NECK: Without adenopathy or JVD. The patient has some small nodules on the anterior portion of her neck in the area of her thyroid. HEART: Regular rate. LUNGS: Clear to auscultation. MUSCULOSKELETAL: Without significant kyphosis or lordosis. The patient does have scoliosis. Has some nodules on her left as well as her right arm. States that these are as a result of lipomas. She is considering whether or not to have them removed in the future. IMPRESSION: 1. Chronic pain involving her hands and other skeletal areas secondary to osteoarthritis with a history of old compression fracture. 2. Nodules finding about the size of a cashew in the anterior portion of her thyroid. She is scheduled to undergo surgery for this in the future. 3. Involvement of osteoarthritis in her knuckles. 4. History of chronic bronchitis. 5. History of scoliosis. RECOMMENDATIONS: The patient feels that her medications are working reasonably well. She is taking them as prescribed. Keeps her medications in a guarded area. Does continue to have pain and discomfort. Takes the hydrocodone in the morning and midday. In the evening, she feels that her pain continues to escalate. She finds it difficult to sleep. At this point, we will increase her oxycodone from 5 mg b.i.d. to 5 mg t.i.d. She is again aware that the opioid medications can become less ____ as time goes on because of development of tolerance. I think it is reasonable for her to have an increase in her medications. Does have a nodule on the left arm near the ulnar aspect down by the wrist. She will place ice on this. Possibility of injection or more investigation of this nodule in the future. We would like to thank you for letting us participate in her care. We hope she continues to improve. By: [id number]. Norberto Moreno MD /nt
== END ==
LOC: M.PC 05:06
DX: G89.29 Other chronic pain (principal); M41.9 Scoliosis, unspecified; M19.90 Unspecified osteoarthritis, unspecified site; J42 Unspecified chronic bronchitis; Z79.899 Other long term (current) drug therapy; Z88.0 Allergy status to penicillin; Z88.8 Allergy status to other drugs, medicaments and biological substances

== ENCOUNTER → 2018-11-24 | Outpatient (CLI) | payer MEDICARE, MEDICAID ==
[~2018-11-24] MED LIST changes: +VOLTAREN GEL 1100 G1 TOP
--- NOTE | ~2018-11-24 | PAINCON ---
[facility] [address] [place] [address] PAIN MANAGEMENT CONSULTATION Name: ALVARO DE LEON Room: [facility]DA CarlosFaizan#: [id number] Admission: 11/24/18 Attend Phys: Darren Moreno MD Discharge: Date of : 42 Report #: [id number] THIS REPORT FOR: //name// CC: Jhonny Moreno DATE OF SERVICE: 11/24/2018 CHIEF COMPLAINT: Followup. Here for medications. I am going to have surgery on my thyroid in December. HISTORY: The patient is a 78-year-old female who has been followed in the pain clinic because of chronic pain. As you may recall, she has pain in her low back area and mid back area. She has pain in her shoulders. She also has some pain in her left arm. Has pain in her wrists secondary to swelling. There is a soreness there. Has had a history of lipomas. She has developed another lipoma on the left forearm and the right forearm. States that there is another lipoma in the left groin over the left anterior thigh area. She is going to have surgery on 12/30/2018. She is somewhat hesitant to undergo the procedure. Did have surgery and removal of the lipoma. States that her throat was extremely sore afterwards. She feels that the hydrocodone medication is helpful with her hands. An increase from b.i.d. to t.i.d. of the hydrocodone has made a difference. She feels her pain is about 70% improved at this juncture. CURRENT MEDICATIONS: Naprosyn 500 mg, hydrocodone 5/325 one p.o. t.i.d. ALLERGIES: DOXYCYCLINE, TETRACYCLINE, LEVOFLOXACIN. PAIN CLINIC ASSESSMENT AND PQRS: 1. The patient has some osteoarthritic changes involving her hands. Has significant changes of arthritic changes involving her knuckles. The patient has a history of scoliosis. She is not being treated for rheumatoid arthritis. 2. Height 5 feet 6 inches, weight 164 pounds, BMI is 26. 3. Vital signs: Blood pressure 146/67, heart rate 82, respiratory rate 16, room air saturation 94%, temperature 98.1. 4. Pain intensity 04/19. 5. Fall history: The patient has not fallen in the last 3 months. 6. Blood thinner. The patient is not on a blood thinning medication. 7. Hypertension. The patient is not being treated for hypertension. 8. Opioids greater than 6 weeks. The patient receives medications from one source, the pain clinic. 9. Risk assessment tool, low for opioid use. 10. Functional assessment tool. 11. Recreational drug use. The patient denies use of recreational drugs. 12. Tobacco: The patient denies use of tobacco. 13. Alcohol: The patient [place] [address] PAIN MANAGEMENT CONSULTATION Name: ALVARO DE LEON Room: [facility]#: [id number] Admission: 11/24/18 Attend Phys: Darren Moreno MD Discharge: Date of : 42 Report #: [id number] PHYSICAL EXAMINATION: GENERAL: The patient is a well-developed, well-nourished white female. Appears her stated age. She is alert and oriented x 3. Her affect is appropriate. Speech is fluent. HEENT: Normocephalic, atraumatic. Extraocular eye muscles are intact. Sclerae nonicteric. NECK: Without JVD. The patient is a small nodule in the anterior portion of her neck near the thyroid. HEART: Regular rate. LUNGS: Clear to auscultation. MUSCULOSKELETAL: Without significant kyphosis or lordosis. The patient does have a history of scoliosis. Has a nodule on her left arm and right arm and some nodule in the left anterior thigh area. The patient states that she has noticed a recurrence of additional lipomas. IMPRESSION: 1. Chronic pain involving her hands and other skeletal area secondary to osteoarthritis with history of old compression fracture. 2. Nodules about the size of a cashew in the anterior portion of her thyroid. She is scheduled to undergo surgery on 12/30/2018. 3. History of chronic bronchitis. 4. History of scoliosis. RECOMMENDATIONS: We discussed treatment options. We will continue with the patient's [place] at 5 mg 1 p.o. t.i.d. She has noticed an improvement in her pain. Rates her pain as a 2/10. This is about a 70% improvement in her pain with the use of her medications. States that she has used the medication as prescribed. She is somewhat hesitant to undergo surgery because of the thought of increased soreness in her throat. She did have what sounds like a laryngeal airway mask when she had surgery. This caused some increased irritation in her throat. She states that her throat was quite sore for a number of days. I would recommend that she ask for an endotracheal tube placement at the next procedure with the hope that she would have less of the swelling. A script for hydrocodone 5/325 one p.o. t.i.d., a total of #90 tablets have been written. She will also continue with her Voltaren gel to the appropriate areas of her upper extremities to help control the pain. We would like to thank you for letting us participate in her care. We hope she continues to improve. By: [id number]. Norberto Moreno MD /mirza
== END ==
LOC: M.PC 05:10
DX: G89.29 Other chronic pain (principal); E04.2 Nontoxic multinodular goiter; M41.80 Other forms of scoliosis, site unspecified; J42 Unspecified chronic bronchitis; Z88.8 Allergy status to other drugs, medicaments and biological substances; Z79.899 Other long term (current) drug therapy

== ENCOUNTER → 2018-12-22 | Outpatient (CLI) | payer MEDICARE, MEDICAID ==
--- NOTE | 2018-12-30 09:09 | PAINCON ---
[address] [address] PAIN MANAGEMENT CONSULTATION Name: ALVARO DE LEON Room: [facility]#: [id number] Admission: 12/22/18 Attend Phys: Darren Moreno MD Discharge: Date of : 42 Report #: [id number] THIS REPORT FOR: //name// CC: Jhonny Fried DATE OF SERVICE: 12/22/2018 PRIMARY CARE PHYSICIAN: Jhonny De Oliveira MD. CHIEF COMPLAINT: "Here for medication renewal, I'm going to have the biopsy in my neck next week." HISTORY OF PRESENT ILLNESS: The patient is a 78-year-old female who has been followed in the pain clinic. As you recall, she has pain involving her shoulders. Has pain in the mid back area. Notes pain with walking, sitting, prolonged standing, climbing stairs. She also notes that bending and lifting are problematic. She has osteoarthritic changes in her hands as well as in her wrists. She has had some problems with lipomas in the past. She has developed about 6 more per her report. She is scheduled to undergo surgery on 12/30 regarding a removal or biopsy of the lump in the area of her thyroid. She would like to go home. There is a possibility that she may have to stay overnight. She is nervous about this procedure. Overall, things are going reasonably well with her medication and she would like to have them renewed. ALLERGIES: DOXYCYCLINE, TETRACYCLINE AND LEVOFLOXACIN. CURRENT MEDICATIONS: Naprosyn 500 mg and hydrocodone 5/325 one p.o. t.i.d. PAIN CLINIC ASSESSMENT/PQRS: 1. The patient has some osteoarthritic changes involving her hands. Has significant changes involving her knuckles. The patient has a history of scoliosis. She is not being treated for rheumatoid arthritis. 2. Height 5 feet 6 inches, weight 168 pounds, BMI is 27.1. 3. VITAL SIGNS: Blood pressure 126/53, heart rate 75, respiratory rate 16, room air saturation 94%. and temperature 97.9. 4. Pain intensity 06/17. 5. Fall history: The patient has not fallen in the last 3 months. 6. Blood thinner. The patient is not on a blood thinning medication. 7. Hypertension. The patient is not being treated for hypertension. 8. Opioids greater than 6 weeks: The patient [facility] her [facility]. 9. Risk assessment tool, low for opioid use. 10. Functional assessment tool. 11. Recreational drug use. The patient [place] [address] PAIN MANAGEMENT CONSULTATION Name: HALEYALVARO SPAIN Alban Room: [facility]#: [id number] Admission: 12/22/18 Attend Phys: Darren Moreno MD Discharge: Date of : 42 Report #: [id number] 12. Tobacco: The patient denies use of tobacco. 13. Alcohol: The patient rarely drinks alcoholic beverages. PHYSICAL EXAMINATION: GENERAL: The patient is a well-developed, well-nourished, white female. Appears her stated age. She is alert and oriented x 3. Her affect is appropriate. Speech is fluent. HEENT: Normocephalic, atraumatic. Extraocular eye muscles intact. Sclerae nonicteric. Mucous membranes are moist. NECK: Without adenopathy. The patient does have a nodule in the anterior portion of her neck near the thyroid. HEART: Regular rate. LUNGS: Clear to auscultation without rhonchi or rales. MUSCULOSKELETAL: Without significant kyphosis or lordosis. The patient does have a history of scoliosis. Has a nodule on her left arm and right arm, a nodule on left anterior thigh area. The patient has had recurrence of lipomas. IMPRESSION: 1. Chronic pain involving her hands and skeletal area secondary to osteoarthritis with history of old compression fracture. 2. Nodule of a size of a cashew in the anterior portion of her thyroid. The patient is slated to undergo surgery/biopsy on 12/30/2018. 2. History of chronic bronchitis. 3. History of scoliosis. RECOMMENDATIONS: We discussed treatment options with the patient. At this juncture, we will continue with her medication. A script for [place] 5 mg 1 p.o. t.i.d. has been written. The patient feels the pain is about 70% improved with use of medication. She is a little bit nervous because of the surgery that is impending. She does not want to stay overnight. She hopes that they find nothing that is problematic. Overall, things are going reasonably well other than the nodules. She has had some problems with lipomas. She may have these removed in the future. A script for hydrocodone 5 mg 1 p.o. t.i.d. has been written. The patient will also continue with Voltaren gel to the affected area of her hands. Hopefully, she continues to do well. I hope her surgery goes well. <ELECTRONICALLY SIGNED> By: Darren Moreno MD 12/30/18 [id number]. Norberto Moreno MD /nt
== END ==
LOC: M.PC 05:44
DX: E04.1 Nontoxic single thyroid nodule (principal); M41.80 Other forms of scoliosis, site unspecified; J42 Unspecified chronic bronchitis

== ENCOUNTER → 2019-01-19 | Outpatient (CLI) | payer MEDICARE, MEDICAID ==
--- NOTE | 2019-01-25 19:22 | PAINCON ---
[address] [address] PAIN MANAGEMENT CONSULTATION Name: ALVARO DE LEON [id number] Admission: 01/19/19 Attend Phys: Darren Moreno MD Discharge: Date of : 42 Report #: [id number] THIS REPORT FOR: //name// CC: Jhonny Fried DATE OF SERVICE: 01/19/2019 CHIEF COMPLAINT: "I had my surgery in my neck and here for my medicines." HISTORY: The patient is a 78-year-old female who has been followed in the pain clinic. As you may recall, she has had chronic pain. She has pain involving her shoulders and mid back area. Notes that activities of daily living can exacerbate her discomfort. She is having some pain in her neck as well. Does have some pain involving her hands. She was found to have a lump/nodule in her neck area. She recently underwent removal of this lump from the thyroid area. States that her neck continues to be somewhat sore. Overall, things are going reasonably well. She rates her pain as a 3/10. She has been placing a warm compress on her neck. She is hoping that the soreness will resolve reasonably fast. She has her surgery about a week or so ago. ALLERGIES: DOXYCYCLINE, TETRACYCLINE, LEVOFLOXACIN. CURRENT MEDICATIONS: Naprosyn 500 mg, hydrocodone 5/325 one p.o. t.i.d. PAIN CLINIC ASSESSMENT AND PQRS: 1. The patient has some osteoarthritic changes involving her hands. She has significant changes in her knuckles. Has a history of scoliosis. She is not being treated for rheumatoid arthritis. 2. Height 5 feet 6 inches, weight 166 pounds. 3. BMI 26.9. 4. Temperature 97.8. 5. Blood pressure 130/61, heart rate 92, respiratory rate 16, room air saturation is 94%. 6. Pain intensity 5/10. 7. Fall history: The patient has not fallen in the last 3 months. 8. Blood thinner: The patient is not on a blood thinning medication. 9. Hypertension: The patient is not being treated for hypertension. 10. Opioids greater than 6 weeks: The [facility]. 11. Risk assessment tool, low for opioid use. 12. Functional assessment tool. 13. Recreational drug use. The patient denies use of recreational drugs. 14. Tobacco: The patient denies use of tobacco. 15. Alcohol: The patient [place] [address] PAIN MANAGEMENT CONSULTATION Name: ALVARO DE LEON Room: [facility]#: [id number] Admission: 01/19/19 Attend Phys: Darren Moreno MD Discharge: Date of : 42 Report #: [id number] PHYSICAL EXAMINATION: GENERAL: The patient is a well-developed, well-nourished white female. Appears her stated age. She is alert and oriented x 3. Her affect is appropriate. Speech is fluent. HEENT: Normocephalic, atraumatic. Extraocular eye muscles intact. Sclerae nonicteric. Mucous membranes are moist. NECK: Without JVD. The patient has a well-healed incision approximately 1 inch in the area of the thyroid. The patient states that it is somewhat sore to touch. Notes some increased soreness when swallowing. HEART: Regular rate. LUNGS: Clear to auscultation without rhonchi or rales. MUSCULOSKELETAL: Without significant scoliosis, kyphosis. The patient does have a history of scoliosis. The patient has had lipomas in the past. Notes them on her left arm, right arm and in anterior thigh area. IMPRESSION: 1. Chronic pain involving her hands and skeletal area secondary to osteoarthritis with history of old compression fracture. 2. Nodule in the thyroid, status post removal few weeks ago on 12/30. 2. History of chronic bronchitis. 3. History of scoliosis. RECOMMENDATIONS: We discussed treatment options with the patient. At this juncture, we will continue with her medication. She feels the hydrocodone medication is helpful. She is recovering from her surgery. Overall, she has not gotten any bad news. She has helped with her use of hydrocodone. The risks and benefits of long-term opioid medication have been discussed. They include possibility of development of tolerance as well as some patients developing dependencies. The patient does not show any signs of addiction. She has taken her medications as prescribed. Keeps her medications in a guarded area. Also, finds Voltaren gel to her hands is helpful. A script for this has been rewritten. The patient will also continue with the hydrocodone 5/325 one p.o. t.i.d. She will call us if she has any concerns. We would like to thank you for letting us participate in her care. Hopefully, her throat will continue to heal. We hope that there are no malignancies found in her specimen. <ELECTRONICALLY SIGNED> By: Darren Moreno MD 01/25/19 [id number]. Norberto Moreno MD /nt
== END ==
LOC: M.PC 09:48
DX: G89.29 Other chronic pain (principal); E04.1 Nontoxic single thyroid nodule; J42 Unspecified chronic bronchitis; M41.80 Other forms of scoliosis, site unspecified

== ENCOUNTER → 2019-02-16 | Outpatient (CLI) | payer MEDICARE, MEDICAID ==
--- NOTE | ~2019-02-16 | PAINCON ---
[address] [address] PAIN MANAGEMENT CONSULTATION Name: ALVARO DE LEON Room: [facility] RADHA CarlosFaizan#: [id number] Admission: 02/16/19 Attend Phys: Darren Moreno MD Discharge: Date of : 42 Report #: [id number] THIS REPORT FOR: //name// CC: Jhonny Moreno DATE OF SERVICE: 02/16/2019 CHIEF COMPLAINT: Still having some problem swallowing pills, but overall things are getting better." HISTORY: The patient is a 79-year-old female who has been followed in the pain clinic. As you may recall, she has chronic pain in a number of areas. She has some pain in her hands associated with osteoarthritis. Also, has some history of scoliosis. Notes that she has pain in her back as well as pain in her neck. She did have surgery on her thyroid. As a result of this thyroid surgery, she still has some soreness in her throat. States that she is able to swallow, but feels that there is some tightness as she swallows. She has not had any problems with aspiration. Did twist her ankle about 2 weeks ago. It involves the right foot. Notes some increased discomfort with standing. Rates her pain today as a 4/10. Feels that things are about 50% improved with her current medical regimen. Notes that cooking and certain other activities of daily living can exacerbate her discomfort. Feels that medication as well as heat improve her pain. ALLERGIES: DOXYCYCLINE, TETRACYCLINE, LEVOFLOXACIN. CURRENT MEDICATIONS: Naprosyn 500 mg, hydrocodone 5/325 one p.o. t.i.d., Voltaren gel q.i.d. to the affected joint, Tylenol PM. PAIN CLINIC ASSESSMENT/PQRS: 1. The patient has some osteoarthritic changes involving her hands. She is not being treated for rheumatoid arthritis. Does have a history of scoliosis. 2. Height 5 feet 6 inches, weight 168 pounds, BMI is 27.2. 3. Vital signs: Blood pressure 133/69, heart rate 87, respiratory rate 16, room air saturation 95%, temperature is 97.6. 4. Pain score 4/10. 5. Fall history: The patient has not fallen in the last 3 months. 6. Blood thinner. The patient is not on a blood thinning medication. 7. Hypertension. The patient is not being treated for hypertension. 8. Opioids greater than 6 weeks. The [facility]. 9. Risk assessment tool, low for opioid use. 10. Functional assessment tool. 11. Recreational drug use. The patient denies use of recreational drugs. 12. Tobacco: The [place] [address] PAIN MANAGEMENT CONSULTATION Name: ALVARO DE LEON Room: [facility]#: [id number] Admission: 02/16/19 Attend Phys: Darren Moreno MD Discharge: Date of : 42 Report #: [id number] 13. Alcohol: The patient rarely drinks alcoholic beverages. PHYSICAL EXAMINATION: GENERAL: The patient is a well-developed, well-nourished white female. Appears her stated age. She is alert and oriented x 3. Her affect is appropriate. Speech is fluent. HEENT: Normocephalic, atraumatic. Extraocular eye muscles intact. Sclerae nonicteric. Mucous membranes are moist. The patient is wearing glasses. NECK: Without adenopathy. The patient has a well-healed scar in the midline area of her neck. She has approximately 1 inch across the area of her thyroid. Still has some soreness and increased tenderness to the area. HEART: Regular rate. LUNGS: Clear to auscultation without rhonchi or rales. MUSCULOSKELETAL: Without significant kyphosis. The patient does have some scoliosis. 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 Has noted them on her left arm, right arm and anterior thigh. IMPRESSION: 1. Chronic pain involving her hands and skeletal area secondary to osteoarthritis with history of old compression fracture as well as scoliosis. 2. Nodule thyroid status post removal 12/30/2018. Still has some discomfort with swallowing. 3. History of chronic bronchitis. 4. Scoliosis. RECOMMENDATIONS: We discussed treatment options with the patient. At this juncture, we will continue with her medications. Risks and benefits of opioid medications have been reviewed. They can cause problems with addiction as well as less pain relief over time because of development of tolerance. The patient feels overall that these medications are helpful. She is taking them as prescribed. She is not having any problems aspirating with the soreness in her neck. Does note some tightness in the throat area. She is able to eat solid foods. Has not complained about that. We will have the patient being mindful when she is taking the medications that she does not aspirate them. A script for her medications have been renewed. She will continue with hydrocodone 5/325 one p.o. t.i.d. She will also continue with Voltaren gel. A script for her medications have been rewritten. She will call us if she has any concerns. We would like to thank you for letting us participate in her care. We hope she continues to improve. By: [id number]. MD jorge a Choi
== END ==
LOC: M.PC 05:02
DX: M41.82 Other forms of scoliosis, cervical region (principal); R13.10 Dysphagia, unspecified; J42 Unspecified chronic bronchitis; G89.29 Other chronic pain; Z79.899 Other long term (current) drug therapy

== ENCOUNTER → 2019-03-16 | Outpatient (CLI) | payer MEDICARE, MEDICAID ==
--- NOTE | ~2019-03-16 | PAINCON ---
[address] [address] PAIN MANAGEMENT CONSULTATION Name: ALVARO DE LEON [facility]: [facility] RADHALizette Landers#: [id number] Admission: 03/16/19 Attend Phys: Darren Moreno MD Discharge: Date of : 42 Report #: [id number] THIS REPORT FOR: //name// CC: Jhonny Fried DATE OF SERVICE: 03/16/2019 CHIEF COMPLAINT: "My right eye seems to be getting a little better." HISTORY: The patient is a 79-year-old female who has been seen in the pain clinic because of chronic pain. She suffers from chronic pain involving her hands. Has significant problems with osteoarthritis. She has noted some deformity in her hands. She also has a history of scoliosis. Notes that there is pain in her back, neck and her pain medications are helpful. She did twist her ankle while walking in the yard. She does have some gophers. Rates her pain today as a 4/10. Feels that she gleans about 50% improvement with use of her current medical regimen. She has had some problem with her right eye. It appears that one of the tear ducts had blocked. She was having tears, which were rolling down from her right eye. She has used some eyedrops, which she got from the pharmacy [id number]. Has noted an improvement in the right eye with less swelling and left hearing. Feels that the tears are draining better. ALLERGIES: DOXYCYCLINE, TETRACYCLINE, LEVOFLOXACIN. CURRENT MEDICATIONS: Naprosyn 500 mg, hydrocodone 5/325 one p.o. t.i.d., Voltaren gel to her upper extremity, which is helpful. Tylenol PM. PAIN CLINIC ASSESSMENT AND PQRS: 1. The patient has some osteoarthritic changes involving her hand. She is not being treated for rheumatoid arthritis. Does have a history of scoliosis. 2. Height was 5 feet 6 inches, weight 168 pounds, BMI is 27.4. 3. Vital Signs: Blood pressure 144/67, heart rate 72, respiratory rate 16, room air saturation 94%, temperature 98.0. 4. Pain intensity 5/10. 5. Fall History: The patient has had some pain in her ankle after a fall, stepping in a gopher hole but things were improved. 6. Blood Thinner: The patient is not on a blood thinning medication. 7. Hypertension. The patient is not being treated for hypertension. 8. Opioids greater than 6 weeks. The patient received medication from [facility]. 9. Risk assessment tool, low for opioid use. 10. Functional assessment tool. 11. Recreational drug use: The patient denies. 12. Alcohol: The patient [place] [address] PAIN MANAGEMENT CONSULTATION Name: ALVARO DE LEON Room: [facility]#: [id number] Admission: 03/16/19 Attend Phys: Darren Moreno MD Discharge: Date of : 42 Report #: [id number] PHYSICAL EXAMINATION: GENERAL: The patient is a well-developed, well-nourished white female. Appears her stated age. She is alert and oriented x 3. Her affect is appropriate. Speech is fluent. HEENT: Normocephalic, atraumatic. Extraocular eye muscles intact. Sclerae are nonicteric. The patient is wearing glasses. She has less swelling in the area of the medial canthus. The duct does not appear to be obstructed at this point. NECK: Without adenopathy. The patient has a well-healed scar in the midline area of her neck. Approximately 1 inch across where she has undergone thyroid surgery. HEART: Regular rate. LUNGS: Clear to auscultation without rhonchi or rales. MUSCULOSKELETAL: The patient without significant kyphosis. Does have scoliosis and has had some lipoma nodules in different places on her left arm, right arm and anterior thigh in the past. IMPRESSION: 1. Chronic pain involving the both hands and skeletal muscles secondary to osteoarthritis with history of old compression fracture as well as scoliosis. 2. Nodule in the thyroid, which has been removed on 12/30/2018. Healing is improving. Had some discomfort with swallowing. 3. History of chronic bronchitis. 4. Scoliosis. RECOMMENDATIONS: We discussed treatment options with the patient. At this juncture, we will continue with her current medication regimen of hydrocodone. She does have pain and discomfort in her hands. She has found that use of Voltaren gel to her hands is quite beneficial. She will continue with hydrocodone 1 tablet p.o. t.i.d. She is aware that opioid medications can be less effective as time goes on. She feels that these medications help her to engage in activities of daily living at this point with less pain and discomfort. Keeps her medications in a guarded area. She is aware that 70,000 people last year as a result of overdosing of their medications. She will continue with her medications. A script has been provided for the next month. She will call us if she has any concerns. We would like to thank you for letting us participate in her care. We hope she continues to improve. By: [id number]. Norberto Moreno MD /mirza
== END ==
LOC: M.PC 09:58
DX: M19.042 Primary osteoarthritis, left hand (principal); M19.041 Primary osteoarthritis, right hand; G89.29 Other chronic pain; E04.1 Nontoxic single thyroid nodule; M41.9 Scoliosis, unspecified; Z79.899 Other long term (current) drug therapy; Z79.891 Long term (current) use of opiate analgesic

== ENCOUNTER → 2019-04-13 | Outpatient (CLI) | payer MEDICARE, OTHER, MEDICAID ==
--- NOTE | ~2019-04-13 | PAINCON ---
[address] [address] PAIN MANAGEMENT CONSULTATION Name: ALVARO DE LEON Room: [facility]#: [id number] Admission: 04/13/19 Attend Phys: Darren Moreno MD Discharge: Date of : 42 Report #: [id number] THIS REPORT FOR: //name// cc: Jhonny De Oliveira Michael G DO ~ THIS REPORT FOR: //name// CC: Jhonny Fried DATE OF SERVICE: 04/13/2019 PRIMARY CARE PHYSICIAN: Jhonny De Oliveira DO CHIEF COMPLAINT: "My back hurts a bit more because I did a lot of walking in [facility]." HISTORY: The patient is a 79-year-old female who has been followed in the pain clinic. Has pain of osteoarthritis involving her hands, particularly her right hand, her index and ring finger are deformed as a result of osteoarthritis. She has noticed an increased pain and discomfort when the weather pattern has changed. The cold weather has exacerbated her discomfort. Also, has some pain in her back because of increased activity. States [facility] that has increased her pain and discomfort. She rates her pain as a 5/10 today. Also, has some pain in her neck. ALLERGIES: DOXYCYCLINE, TETRACYCLINE, LEVOFLOXACIN. CURRENT MEDICATIONS: Naprosyn 500 mg, hydrocodone 5 mg 1 p.o. t.i.d., Voltaren gel to the upper extremities, which is helpful and Tylenol PM. PAIN CLINIC ASSESSMENT AND PQRS: 1. The patient has some changes in her hands. These were osteoarthritic. She is not being treated for rheumatoid arthritis. Does have a history of scoliosis. 2. Height 5 feet 6 inches, weight 169 pounds, BMI is 27.4. 3. Vital signs: Blood pressure 133/74, heart rate 66, respiratory rate 18, room air saturation 97%, temperature 97.5. 4. Pain intensity 5/10. 5. Fall history: The patient has not fallen since we saw her last. 6. Blood thinner. The patient is not on a blood thinning medication. 7. Hypertension. The patient is not being treated for hypertension. 8. Opioids greater than 6 weeks. The [facility]. 9. Risk assessment tool, [place] [address] PAIN MANAGEMENT CONSULTATION Name: ALVARO DE LEON Room: [facility]#: [id number] Admission: 04/13/19 Attend Phys: Darren Moreno MD Discharge: Date of : 42 Report #: [id number] 10. Functional assessment tool. 11. Recreational drug use: The patient denies. 12. Alcohol: The patient occasionally drinks alcoholic beverages. PHYSICAL EXAMINATION: GENERAL: The patient is a well-developed, well-nourished white female. Appears her stated age. She is alert and oriented x 3. Her affect is appropriate. Speech is fluent. HEENT: Normocephalic, atraumatic. Extraocular eye muscles intact. Sclerae nonicteric. Mucous membranes are moist. NECK: Without adenopathy. Well-healed scar in the midline of her neck approximately 1 inch, status post thyroid surgery. HEART: Regular rate. LUNGS: Generally clear to auscultation without rhonchi or rales. MUSCULOSKELETAL: Without significant scoliosis, kyphosis or lordosis. The patient with a history of lipoma nodules on her left arm, right arm and anterior thigh in the past. IMPRESSION: 1. Chronic pain involving both hands and skeletal muscles secondary to osteoarthritis with a history of compression fracture of the back with scoliosis as well. 2. Nodules in the thyroid removed on 12/30/2018. 3. History of chronic bronchitis. 4. Scoliosis. RECOMMENDATIONS: We discussed treatment options with the patient. At this juncture, she feels her medications are helpful. We will continue with the medications. The possible complication of opioid medications has been discussed. The possibility of development of tolerance has been reviewed. The patient also is aware that some patients can become addicted to the medication. She is showing no signs of addiction. She has taken the medication as prescribed. She feels that this medication enables her to stay relatively active, more so than if she were not taking the medication. She does not have any problems with constipation. She is thinking clearly. We would like to thank you for letting us participate in her care. A script for her medications of hydrocodone 5 mg 1 p.o. t.i.d. has been rewritten. The patient will follow up in a month. She generally gets about 50% improvement in her pain with her current regimen. By: [id number]. Norberto Moreno MD /mirza
== END ==
LOC: M.PC 05:14
DX: M19.041 Primary osteoarthritis, right hand (principal); G89.29 Other chronic pain; M19.042 Primary osteoarthritis, left hand; M41.9 Scoliosis, unspecified; Z79.891 Long term (current) use of opiate analgesic; Z88.1 Allergy status to other antibiotic agents

== ENCOUNTER → 2019-05-11 | Outpatient (CLI) | payer MEDICARE, MEDICAID ==
[~2019-05-11] MED LIST changes: +HYDROCODON-ACE1 EAC5 PO
--- NOTE | 2019-05-25 09:57 | PAINCON ---
[address] [address] PAIN MANAGEMENT CONSULTATION Name: HALEYALVARO SPAIN Alban Room: [facility] CarlosShin.#: [id number] Admission: 05/11/19 Attend Phys: Darren Moreno MD Discharge: Date of : 42 Report #: [id number] THIS REPORT FOR: //name// cc: Jhonny De Oliveira Michael G DO ~ THIS REPORT FOR: //name// CC: Jhonny Fried The patient was seen on 05/11/2019 by Norberto Moreno MD CHIEF COMPLAINT: Pain has gotten worse. On Friday morning, I found almost impossible to move, having some pain in my left forearm. HISTORY: The patient is a 79-year-old female who has been followed in the pain clinic. She does have chronic pain. She has pain in her hands, particularly the right hand. Her index and ring fingers are deformed as a result of osteoarthritis. Has pain and discomfort that is exacerbated with the change in weather. She also has pain in her back. She has noticed an increase in pain over the last 2-3 days. She feels that her medications are helpful and has returned to the pain clinic for renewal of these medications. She is having some low back pain. Also, has some left shoulder aches. She states that she "slept wrong." She has an old fracture in her back, which is acting up at this juncture. Rates her pain overall as 50% improved with her current medical regimen. Rates the pain as an 8/10 today. She feels that the hydrocodone is helpful as well as the Voltaren gel, which she has placed on her joints. Walking, sitting, standing, bending, and lifting exacerbate her discomfort. ALLERGIES: DOXYCYCLINE, TETRACYCLINE, LEVOFLOXACIN. CURRENT MEDICATIONS: Naprosyn 500 mg, hydrocodone 5/325 one p.o. t.i.d., Voltaren gel to the upper extremities and hands, Tylenol PM. PAIN CLINIC ASSESSMENT AND PQRS: 1. The patient has osteoarthritic changes involving her hands. She is not being treated for rheumatoid arthritis. She does have a history of scoliosis. 2. Height 5 feet 6 inches, weight 166 pounds, BMI is 26.8. 3. Vital signs: Blood pressure 147/70, heart rate 92, respiratory rate 16, room air saturation is 95%, temperature 97.9. 4. Pain intensity 8/10. 5. Fall history: The patient has not fallen in the last 3 months. 6. Blood thinner. The patient is not on a blood thinning medication. 7. Opioids greater than 6 weeks. The [facility]. 8. Hypertension. The patient is [place] [address] PAIN MANAGEMENT CONSULTATION Name: ALVARO DE LEON Room: [facility]#: [id number] Admission: 05/11/19 Attend Phys: Darren Moreno MD Discharge: Date of : 42 Report #: [id number] 9. Risk assessment tool, over opioid use. 10. Functional assessment tool. 11. Recreational drug use: The patient denies. 12. Alcohol. The patient denies use of alcoholic beverages. 13. Tobacco: The patient denies smoking. PHYSICAL EXAMINATION: GENERAL: The patient is a well-developed, well-nourished white female. Appears her stated age. She is alert and oriented x 3. Her affect is appropriate. Speech is fluent. HEENT: Normocephalic, atraumatic. Extraocular eye muscles intact. Sclerae nonicteric. Mucous membranes are moist. The patient wears glasses. NECK: Without adenopathy. The patient has a well-healed scar in the midline approximately 1 inch status post thyroid surgery. HEART: Regular rate. LUNGS: Clear to auscultation. MUSCULOSKELETAL: Without significant kyphosis or lordosis. The patient does have a history of lipoma nodules on her left arm, right arm and anterior thigh. IMPRESSION: 1. Chronic pain involving both hands and skeletal muscles secondary osteoarthritis and history of compression fracture in the back with scoliosis. 2. Nodules in the thyroid removed on 12/30/2018. 3. History of chronic bronchitis. 4. Scoliosis. RECOMMENDATIONS: We discussed treatment options with the patient. At this juncture, we will continue with her medications. She feels her medications are helpful in decreasing her pain. She gets about 50% improvement. She rates her pain today as an 8/10. She is able to engage in activities of daily living with less discomfort. She is clear and talked. Medications are not causing any sedation. She is aware that opioid medications can become less effective as time goes on. They can become less effective because of development of tolerance. The patient is not developing tolerance. She has taken the medication as prescribed. She is aware that they can cause addiction. She has not shown any signs of addiction. A script for her medications has been rewritten. The patient will continue with Voltaren gel 2 mg tube q.i.d. to the affected areas. She will also continue with hydrocodone 7.5 mg 1 p.o. t.i.d. The patient will call us if she has any concerns. We would like to thank you for letting us participate in her care. We hope she continues to improve. <ELECTRONICALLY SIGNED> By: Darren Moreno MD 05/25/19 [id number]. Norebrto Moreno MD /nt
== END ==
LOC: M.PC 04:19
DX: M79.641 Pain in right hand (principal); M79.642 Pain in left hand; M19.90 Unspecified osteoarthritis, unspecified site; M41.80 Other forms of scoliosis, site unspecified; Z88.8 Allergy status to other drugs, medicaments and biological substances; Z88.5 Allergy status to narcotic agent; Z88.2 Allergy status to sulfonamides

== ENCOUNTER → 2019-08-03 | Outpatient (CLI) | payer MEDICARE, MEDICAID ==
--- NOTE | 2019-08-09 09:22 | PAINCON ---
[address] [address] PAIN MANAGEMENT CONSULTATION Name: ALVARO DE LEON Room: [facility]#: [id number] Admission: 08/03/19 Attend Phys: Darren Moreno MD Discharge: Date of : 44 Report #: [id number] THIS REPORT FOR: //name// cc: Jhonny De Oliveira DO Jhonny De Oliveira DO ~ THIS REPORT FOR: //name// CC: Jhonny Moreno DATE OF SERVICE: 08/03/2019 CHIEF COMPLAINT: Continued pain in the upper, mid and low back area. HISTORY: The patient is a 79-year-old female who has been followed in the pain clinic because of chronic pain involving arthritis and osteoarthritic changes. She rates her pain as a 7/10 today. She has an area of her chest cavity that hurts. Has some increased discomfort when she takes a deep breath. She recently fell and tripped on the floor. Overall, she feels that her pain is about 50% improved with her current medications. She notes walking, sitting, standing, bending all can be problematic. Notes that cleaning her house increases her level of discomfort. Overall, things are going reasonably well and she would like to have her medications renewed. ALLERGIES: DOXYCYCLINE, TETRACYCLINE, LEVOFLOXACIN CURRENT MEDICATIONS: Naprosyn 500 mg, hydrocodone 5/325 1 p.o. t.i.d., Voltaren gel to the upper extremities and hands, Tylenol PM. PAIN CLINIC ASSESSMENT AND PQRS: 1. The patient has some osteoarthritic changes involving her hands. She is not being treated for rheumatoid arthritis. The patient does have a history of scoliosis. 2. Height 5 feet 6 inches, weight 167 pounds, BMI is 27.0. 3. Vital signs: Blood pressure 149/71, heart rate 69, respiratory rate 16, room air saturation 93%, temperature 97.4. 4. Pain intensity, 7/10. 5. Fall history. The patient fell recently. 6. Blood thinner. The patient is not on a blood thinning medication. 7. Opioids greater than 6 weeks. The patient receives medication from one source, the pain clinic. 8. Risk assessment tool, low for opioid use. 9. Functional assessment tool, reviewed. 10. Recreational drugs. The patient denies. 11. Alcohol. The patient denies. 12. Tobacco[place] [address] PAIN MANAGEMENT CONSULTATION Name: HALEYALVARO SPAIN Alban Room: [facility]#: [id number] Admission: 08/03/19 Attend Phys: Darren Moreno MD Discharge: Date of : 44 Report #: [id number] PHYSICAL EXAMINATION: GENERAL: The patient is a well-developed, well-nourished, white female. Appears her stated age. She is alert and oriented x 3. Her affect is appropriate. Speech is fluent. HEENT: Normocephalic, atraumatic. Extraocular eye muscles intact. Sclerae nonicteric. Mucous membranes are moist. The patient is wearing glasses. NECK: Without adenopathy. Well-healed scar in the midline portion of an area of her thyroid. HEART: Regular rate. LUNGS: Clear to auscultation. MUSCULOSKELETAL: Without significant scoliosis, kyphosis or lordosis. The patient does have some history of lipoma notes on her left arm, right arm and anterior thigh. IMPRESSION: 1. Chronic pain involving both hands and skeletal muscles. 2. Osteoarthritic symptoms with compression fracture in the back with scoliosis. 3. Nodules in the thyroid removed on 12/30/2018. 4. History of chronic bronchitis. 5. Scoliosis. RECOMMENDATIONS: We discussed treatment options with the patient. At this juncture, we will continue with her medications. A script for the medications have been rewritten. The patient will continue with hydrocodone 10 mg 1 p.o. t.i.d. A script for 2 months of medication have been provided. The patient will call us if she has any concerns. We would like to thank you for letting us participate in her care. She is aware that opioid medications may become less effective as time goes on. She is thinking clearly. She is not having any problems with sedation. <ELECTRONICALLY SIGNED> By: Darren Moreno MD 08/09/19 0922 [id number]. Norberto Moreno MD /[facility]
== END ==
LOC: M.PC 04:18
DX: M54.5 Low back pain (principal); M79.641 Pain in right hand; M79.642 Pain in left hand; M19.90 Unspecified osteoarthritis, unspecified site; M41.9 Scoliosis, unspecified; Z87.09 Personal history of other diseases of the respiratory system; Z79.899 Other long term (current) drug therapy

== ENCOUNTER → 2019-12-21 | Outpatient (CLI) | payer MEDICARE, MEDICAID ==
[~2019-12-21] MED LIST changes: +TIZANIDINE HCL2 M1 PO
--- NOTE | 2020-01-05 15:45 | PAINCON ---
[address] [address] PAIN MANAGEMENT CONSULTATION Name: ALVARO DE LEON Room: [facility]#: [id number] Admission: 12/21/19 Attend Phys: Darren Moreno MD Discharge: Date of : 44 Report #: [id number] THIS REPORT FOR: //name// cc: Jhonny De Oliveira Michael G DO ~ CC: Jhonny Moreno DATE OF SERVICE: 12/21/2019 PRIMARY CARE PHYSICIAN: Jhonny De Oliveira DO CHIEF COMPLAINT: Continued low back pain and pain on the left side is worse than the right. HISTORY: The patient is a 79-year-old female who has been followed in the pain clinic. She suffers from osteoarthritis. Has arthritic changes in her hands and fingers. She returns today indicating that she is having some pain and discomfort in her low back. It involves the left and the right side. Left side is more problematic. She rates it as a 7/10. Has not fallen. Notes that activities of daily living such as walking, sitting, standing, bending, and lifting are all more problematic. She feels her medications are helpful. She would like to have the medications renewed. She has had no complication from their use. She is taking them as prescribed. Rates her pain as a 7/10 today. ALLERGIES: DOXYCYCLINE, TETRACYCLINE, LEVOFLOXACIN. CURRENT MEDICATIONS: Diclofenac gel to the affected area 4 times daily, hydrocodone 10/325 one p.o. t.i.d., Tylenol Extra Strength. PAIN CLINIC ASSESSMENT AND PQRS: 1. The patient has some arthritic changes involving her hands. There are arthritic changes noted at the joints. She is not being treated for rheumatoid arthritis. 2. She does have a history of scoliosis. 3. Height 5 feet 6 inches, weight 162 pounds, BMI is 26.4. 4. Vital signs: Blood pressure 136/63, heart rate 77, respiratory rate 16, room air saturation 97%, temperature 98.4. 5. Pain intensity 09/16. 6. Fall history: The patient has not fallen in the last 3 months. 7. Blood thinner. The patient is not on a blood thinning medication. 8. Risk assessment tool, low for opioid use. 9. Blood thinner. The patient is not on a blood thinning medication. 10. Functional assessment tool, reviewed. 11. Recreational drug use: The patient denies. 12. Alcohol: The patient occasionally drinks alcoholic [place] [address] PAIN MANAGEMENT CONSULTATION Name: HALEYALVARO A Room: [facility]#: [id number] Admission: 12/21/19 Attend Phys: Darren Moreno MD Discharge: Date of : 44 Report #: [id number] 13. Tobacco: The patient denies use of tobacco. PHYSICAL EXAMINATION: GENERAL: The patient is a well-developed, well-nourished white female. Appears her stated age. She is alert and oriented x 3. Her affect is appropriate. Speech is fluent. HEENT: Normocephalic, atraumatic. Extraocular eye muscles intact. Sclerae nonicteric. The patient is wearing glasses. Has a facial covering in place. NECK: Without adenopathy. Well-healed scar in the midline area of her thyroid. HEART: Regular rate. LUNGS: Clear to auscultation. MUSCULOSKELETAL: Without significant kyphosis or lordosis. The patient has a history of scoliosis. The patient has a history of some lipomatous nodules on her left arm, right arm and anterior thigh. IMPRESSION: 1. Chronic pain involving both hands and skeletal muscles. 2. Osteoarthritic symptoms with history of compression fracture in the back with scoliosis. 3. Nodules in the thyroid removed, 12/2018. 4. History chronic bronchitis. 5. Scoliosis. RECOMMENDATIONS: We discussed treatment options with the patient. At this juncture, we will continue with her medications. A script for her medications of hydrocodone have been renewed. The patient is aware that opioid medications can become less effective as time goes on. She has used Voltaren gel. She finds that this is helpful when applied to the affected joints. The patient will continue with her medications. A script for the medications for the next 2 months has been provided. The patient will call us if she has any concerns. We would like to thank you for letting us participate in her care. We hope she continues to improve. <ELECTRONICALLY SIGNED> By: Darren Moreno MD 01/05/20 1545 [id number]. Norberto Moreno MD /[facility]
== END ==
LOC: M.PC 09:23
PROVIDERS: ATTEND Anesthesiology Pain Medicine
DX: G89.29 Other chronic pain (principal); M79.642 Pain in left hand; M79.641 Pain in right hand; M79.18 Myalgia, other site; M41.9 Scoliosis, unspecified; Z98.890 Other specified postprocedural states; Z68.26 Body mass index [BMI] 26.0-26.9, adult; Z88.8 Allergy status to other drugs, medicaments and biological substances; Z79.891 Long term (current) use of opiate analgesic; Z79.899 Other long term (current) drug therapy

== ENCOUNTER → 2020-05-16 | Outpatient (CLI) | payer MEDICARE, MEDICAID | LOC: M.PC 10:42 | PROVIDERS: ATTEND Anesthesiology Pain Medicine | DX: M54.5 Low back pain (principal); M25.551 Pain in right hip; M25.552 Pain in left hip; J42 Unspecified chronic bronchitis; M79.642 Pain in left hand; M79.641 Pain in right hand; M41.9 Scoliosis, unspecified; Z85.850 Personal history of malignant neoplasm of thyroid; Z88.8 Allergy status to other drugs, medicaments and biological substances; Z79.899 Other long term (current) drug therapy ==

== ENCOUNTER → 2020-07-11 | Outpatient (CLI) | payer MEDICARE, MEDICAID | LOC: M.PC 09:47 | PROVIDERS: ATTEND Anesthesiology Pain Medicine | DX: M54.5 Low back pain (principal); J41.0 Simple chronic bronchitis; M79.641 Pain in right hand; M79.642 Pain in left hand; M41.9 Scoliosis, unspecified ==

== ENCOUNTER → 2020-09-05 | Outpatient (CLI) | payer MEDICARE, MEDICAID ==
[~2020-09-05] MED LIST changes: +HYDROCODONE-AP1 EA11 PO; +VOLTAREN ARTHRI20 GM TOP
== END ==
LOC: M.PC 10:16
PROVIDERS: ATTEND Anesthesiology Pain Medicine
DX: J42 Unspecified chronic bronchitis (principal); M19.90 Unspecified osteoarthritis, unspecified site; G89.29 Other chronic pain; M41.9 Scoliosis, unspecified; D17.20 Benign lipomatous neoplasm of skin and subcutaneous tissue of unspecified limb; Z79.899 Other long term (current) drug therapy; Z79.891 Long term (current) use of opiate analgesic; Z90.710 Acquired absence of both cervix and uterus

== ENCOUNTER → 2020-11-28 | Outpatient (CLI) | payer MEDICARE, MEDICAID ==
[~2020-11-28] MED LIST changes: +AMARYL1 MG PO; +ARTHRITIS PAIN100 GM TOP; +BARIATRIC MV-I1 EACH; +CO-ENZYME Q101 EACH PO; +FLOMAX0.4 MG PO; +GAS-X125 MG; +LIPITOR10 MG PO; +METFORMIN HCL500 M3 PO; +NEURONTIN300 MG PO; +NORCO 10-325 T1 EACH PO; +SLOW FE142 MG PO; +ST. JOSEPH ASPI81 MG PO; +WIXELA 500-501 EACH INH
== END ==
LOC: M.PC 10:58
PROVIDERS: ATTEND Anesthesiology Pain Medicine
DX: M19.042 Primary osteoarthritis, left hand (principal); M19.041 Primary osteoarthritis, right hand; M54.5 Low back pain; M41.9 Scoliosis, unspecified; M25.551 Pain in right hip; M25.552 Pain in left hip; J42 Unspecified chronic bronchitis; Z90.710 Acquired absence of both cervix and uterus; Z98.890 Other specified postprocedural states; Z79.899 Other long term (current) drug therapy

== ENCOUNTER → 2021-01-23 | Outpatient (CLI) | payer MEDICARE, MEDICAID | LOC: M.PC 11:10 | PROVIDERS: ATTEND Anesthesiology Pain Medicine | DX: M19.042 Primary osteoarthritis, left hand (principal); M19.041 Primary osteoarthritis, right hand; M54.50 Low back pain, unspecified; J42 Unspecified chronic bronchitis; E04.2 Nontoxic multinodular goiter; M41.80 Other forms of scoliosis, site unspecified; M25.551 Pain in right hip; M25.552 Pain in left hip; Z90.710 Acquired absence of both cervix and uterus; Z79.82 Long term (current) use of aspirin; Z79.84 Long term (current) use of oral hypoglycemic drugs; Z79.899 Other long term (current) drug therapy ==

== ENCOUNTER → 2021-04-17 | Outpatient (CLI) | payer MEDICARE, MEDICAID ==
[~2021-04-17] MED LIST changes: +PEPCID20 MG PO
== END ==
LOC: M.PC 03-20 11:20
PROVIDERS: ATTEND Anesthesiology Pain Medicine
DX: G89.29 Other chronic pain (principal); J42 Unspecified chronic bronchitis; M19.90 Unspecified osteoarthritis, unspecified site; Z79.891 Long term (current) use of opiate analgesic; Z79.899 Other long term (current) drug therapy; Z88.8 Allergy status to other drugs, medicaments and biological substances